=== PATIENT | female | born 1950 | race Caucasian/White ===

== ENCOUNTER 2018-04-19 16:41 | Inpatient (IN) ==
--- NOTE | 2018-04-19 17:10 | Emergency Department Note ---
Disposition Clinical Impression: Left knee pain Qualifiers: Chronicity: acute Qualified Code(s): M25.562 - Pain in left knee Disposition: Still a Patient Condition: Good Referrals: Derrick Trinidad DO [Primary Care Provider] - Forms: ED Satisfaction Letter Time of Disposition: 18:00 Extremity Problem HPI - General Chief complaint: ED Extremity Problem,Nontraumatic Stated complaint: Knee pain Time Seen by Provider: 04/19/18 17:02 Source: patient Mode of arrival: wheelchair Limitations: no limitations Nursing Notes Reviewed: Yes Vital Signs Reviewed: Yes - History of Present Illness HPI Narrative: Nontoxic-appearing 67-year-old female presents for evaluation of left knee pain and swelling. Symptoms began approximately 5 days ago. She states that approximately 3 days ago, she began to run a subjective fever. She does state that she has been afebrile today however. The fever was also accompanied by some nausea and generalized malaise. She denies any known injury or trauma to the left knee. She does state a history of a left knee scope several years ago. She did visited a local urgent care several days ago where she was placed on oral clindamycin. She states she does believe that this medication has improved her symptoms as she is no longer febrile and she states that the swelling has improved today. She contacted her primary care or binders office regarding her symptoms and was instructed to present to the emergency department for further evaluation out of concern for the possibility of a septic joint. Pt Subjective Complaint: joint swelling (Left knee), joint pain (Left knee) Onset (ago): day(s) (5) Consistency: Worsening Injury Location: left, knee Pain Scale: 3 Quality: aching Radiation: none Improves with: nothing Worsens with: range of motion, weight bearing, walking, palpation Associated symptoms: Reports: fever, other (Nausea, generalized malaise) - Related Data Home Medications Medication Instructions Recorded Confirmed Gabapentin 04/29/17 Simvastatin 04/29/17 Symbicort 80/4.5 04/29/17 04/29/17 Xanax 04/29/17 Zoloft 04/29/17 traZODone 04/29/17 Previous Rx's Medication Instructions Recorded Clindamycin HCl 300 mg PO TID 10 Days #30 capsule 04/17/18 Allergies Allergy/AdvReac Type Severity Reaction Status Date / Time No Known Allergies Allergy Verified 04/17/18 17:07 All systems ED: reviewed and negative except as stated. Review of Systems: As Per HPI Constitutional: Reports: as per HPI, fever. Denies: chills, weakness, weight change Eyes: Denies: eye pain, eye discharge, vision change ENT ED: Denies: ear pain, throat pain, dental pain, hearing loss, epistaxis, congestion, dysphagia Cardiovascular: Denies: chest pain, palpitations, dyspnea on exertion, edema, syncope Respiratory: Denies: cough, dyspnea, wheezes, hemoptysis, stridor Gastrointestinal: Reports: as per HPI, nausea. Denies: abdominal pain, vomiting, diarrhea, constipation, hematemesis, melena, hematochezia Genitourinary: Denies: dysuria, frequency, hematuria, discharge Musculoskeletal: Reports: as per HPI, joint swelling (Left knee swelling), arthralgia (Left knee pain). Denies: back pain, neck pain, myalgia Integumentary: Denies: rash, abrasion, lesions Neurological: Denies: headache, weakness, numbness, paresthesias, confusion, abnormal gait, vertigo Psychiatric: Denies: anxiety, depression, suicidal thoughts, homicidal thoughts, auditory hallucinations, visual hallucinations Endocrine: Denies: fatigue Hematological/Lymphatic: Denies: easy bleeding, easy bruising Allergic/Immunologic: Denies: facial swelling, urticaria Past Medical History - Past Medical History Attestation: Yes The following information was validated with the patient. Source: patient, nursing notes reviewed Medical history: Reports: COPD, other (Osteoarthritis) - Social History Smoking Status: Unknown if ever smoked Smokeless Tobacco Status: No Alcohol use: Reports: none Physical Exam - General Limitations: no limitations General appearance: alert, in no apparent distress - Head Head exam: atraumatic, normocephalic, normal inspection - Eye Eye exam: Present: normal appearance, PERRL, EOMI. Absent: nystagmus - ENT ENT exam: mucous membranes moist - Neck Neck exam: Present: normal inspection, full ROM, trachea midline - Chest Chest inspection: Present: normal inspection, symmetric chest wall rise - Expanded Lower Extremity Exam Upper leg exam: Present: normal inspection, full ROM Knee exam: Present: full ROM (Although painful with range of motion exercises), tenderness (Anterior left knee diffusely tender to palpation. There is also tenderness with palpation of the posterior fossa.), swelling (Mild soft tissue swelling noted, left knee), other (No erythema however the left knee is slightly warm to the touch compared to the right.). Absent: abrasion, laceration, ecchymosis, deformity, crepitus, dislocation, erythema Lower leg exam: Present: normal inspection, full ROM. Absent: erythema, palpable cord, Homans' sign Ankle exam: Present: normal inspection, full ROM Foot/toe exam: Present: normal inspection, full ROM Neurovascular/Tendon exam: Present: normal capillary refill. Absent: pulse deficit, tendon deficit, extremity cold to touch - Neurological Exam Neurological exam: Present: alert, oriented X3 - Psychiatric Psychiatric exam: Present: normal affect, normal mood - Skin Skin exam: Present: warm, dry, intact Course Course Narrative: 1756: I was notified by the optics manufacturing technician that the patient is negative for a DVT or SVT of the left lower extremity. Vital Signs Temperature 98.6 F 04/19/18 16:51 Pulse Rate 88 04/19/18 16:51 Respiratory Rate 18 04/19/18 16:51 Blood Pressure 136/71 04/19/18 16:51 O2 Sat by Pulse Oximetry 94 04/19/18 16:51 Temperature 98.6 F 04/19/18 16:51 Pulse Rate 88 04/19/18 16:51 Respiratory Rate 18 04/19/18 16:51 Blood Pressure 136/71 04/19/18 16:51 O2 Sat by Pulse Oximetry 94 04/19/18 16:51 Oxygen Delivery Oxygen Delivery Room Air Extremity Problem, Nontraumati - Medical Records Medical records reviewed: Yes I reviewed the patient's medical records. S.B.A.R. - S.B.A.R. Situation: Demographics, MOA Background: Presenting Complaint, Relevant PMH, Meds, & Allergies Assessment: Vital Signs, Course and respsone to treatment, Exam Concerns, Patient/Family Expectation, Pertinant Lab Results, Outstanding Labs Recommendation: Barrier(s) to disposition, Recommendation based on pending studies, treatments, or consults S.B.A.R. Report Given to: Bola Miranda CNP S.B.AEva Repor Time: 18:00
[2018-04-19 18:12] LABS: BUN/Creatinine Ratio 17 (6-26); Blood Urea Nitrogen 12 mg/dL (8-23); C-Reactive Protein 51 mg/L (Less than 10); Calcium 9.6 mg/dL (8.6-10.3); Carbon Dioxide 34 mEq/L (23-29); Chloride 101 mEq/L (98-107); Glucose 121 mg/dL (70-105); Osmolality,Calculated 291 (280-300); Potassium 4.7 mEq/L (3.5-5.1); Sodium 140 mEq/L (136-145); Uric Acid 2.8 mg/dL (2.3-7.6); eGFR For Non-African Americans > 60 (> 60)
--- NOTE | 2018-04-19 18:22 | Emergency Department Note ---
Disposition Clinical Impression: Hemarthrosis Left knee pain Qualifiers: Chronicity: acute Qualified Code(s): M25.562 - Pain in left knee Disposition: Admitted As Inpatient Condition: Good Extremity Problem HPI - General Chief complaint: ED Extremity Problem,Nontraumatic Stated complaint: Knee pain Time Seen by Provider: 04/19/18 17:02 Source: patient Mode of arrival: wheelchair Limitations: no limitations Nursing Notes Reviewed: Yes Vital Signs Reviewed: Yes - History of Present Illness Consistency: Worsening Injury Location: left, knee Pain Scale: 3 Quality: aching Improves with: nothing Worsens with: range of motion, weight bearing, walking, palpation Associated symptoms: Reports: fever, other (Nausea, generalized malaise) - Related Data Home Medications Medication Instructions Recorded Confirmed ALPRAZolam [Xanax 0.5 MG Tablet] 0.5 mg PO HS 04/19/18 04/19/18 Budesonide/Formoterol 160/4.5 2 puff IH BIDR 04/19/18 04/19/18 [Symbicort 160/4.5] Meloxicam 15 mg PO DAILY 04/19/18 04/19/18 Sertraline [Zoloft] 150 mg PO DAILY 04/19/18 04/19/18 Simvastatin [Zocor] 40 mg PO QPM 04/19/18 04/19/18 Trazodone HCl 150 mg PO HS 04/19/18 04/19/18 Allergies Allergy/AdvReac Type Severity Reaction Status Date / Time No Known Allergies Allergy Verified 04/17/18 17:07 Constitutional: Reports: as per HPI, fever. Denies: chills, weakness, weight change Eyes: Denies: eye pain, eye discharge, vision change ENT ED: Denies: ear pain, throat pain, dental pain, hearing loss, epistaxis, congestion, dysphagia Cardiovascular: Denies: chest pain, palpitations, dyspnea on exertion, edema, syncope Respiratory: Denies: cough, dyspnea, wheezes, hemoptysis, stridor Gastrointestinal: Reports: as per HPI, nausea. Denies: abdominal pain, vomiting, diarrhea, constipation, hematemesis, melena, hematochezia Genitourinary: Denies: dysuria, frequency, hematuria, discharge Musculoskeletal: Reports: as per HPI, joint swelling (Left knee swelling), arthralgia (Left knee pain). Denies: back pain, neck pain, myalgia Integumentary: Denies: rash, abrasion, lesions Neurological: Denies: headache, weakness, numbness, paresthesias, confusion, abnormal gait, vertigo Psychiatric: Denies: anxiety, depression, suicidal thoughts, homicidal thoughts, auditory hallucinations, visual hallucinations Endocrine: Denies: fatigue Hematological/Lymphatic: Denies: easy bleeding, easy bruising Allergic/Immunologic: Denies: facial swelling, urticaria Past Medical History - Past Medical History Medical history: Reports: COPD, other (Osteoarthritis) - Social History Smoking Status: Unknown if ever smoked Smokeless Tobacco Status: No Alcohol use: Reports: none Physical Exam - General Limitations: no limitations General appearance: alert, in no apparent distress Course Course Narrative: Care of patient assumed from previous provider, please see their documentation for interventions and assessment prior to my arrival. Briefly, this is a 67-year-old female who presents to the ER for left pain knee and swelling for 5 days. Says a nontraumatic pain. 3 days ago patient was experiencing subjective fevers though she states she has been afebrile today. The fevers were accompanied with some nausea and general malaise. She did not seek urgent care who placed her on oral clindamycin and she has noticed some improvement with some decreased swelling and the subjective fevers have stopped. Gen. but her PCP office who had her come to the emergency department for evaluation for possibility of a septic joint. Prior to my arrival patient had a Doppler study which was negative for a DVT. She is currently pending lab work and an x-ray. Patient has declined all pain medication. She is ambulatory, she does have full range of motion that she does have pain with the range of motion exercises. Left knee with some mild edema, there is slight warmth with touch, no erythema. Patient is ambulatory she does favor her left knee, there is tenderness to palpation to the anterior knee diffusely, pain with PROM. No skin dyscrasia, noticeable abscess or ulceration. - Reevaluation(s) Reevaluation #1: Pt continues to decline pain medication. ESR/CRP, BMP, LA returned however no CBC. Phoned lab, did not run CBC, will have to redraw sample due to already running ESR. ESR returns 29, CRP 51, Lactic Acid 1.5. BMP is benign. It is poss ible the elevation of ESR/CRP related to acute arthritis and not necessarily septic arthritis. Knee XR with tricompartmental arthritis and possible joint effusion. Pt states Clindamycin was for a ear infection, but she has not been able to take it. Ears without evidence of infection. Will continue to monitor, lab has been repaged for CBC. Time: 19:35 Reevaluation #2: CBC returns without leukocytosis. After anesthetizing left knee with 1 mL of lidocaine, area was sterilely prepped and utilizing sterile procedure and arthrocentesis was completed in the medial infrapatellar area with success. Synovial fluid returns a dk purple in color, obvious blood, what appeared to be thick cloudy fluid mixed with blood. Pt tolerated procedure well without complications or bleeding. Specimen sent to lab for analysis. Time: 20:42 Reevaluation #3: Pt continues without acute distress, she complains of mild pain still but declines treatment. Synovial fluid returns with total nuc cells at 5519, bloody. MADHAVI source continues to pend. Pt without classic presentation of septic joint, but does have concerning symptoms with pain with passive ROM, fevers. I cannot say for certain this is or is not septic arthritis but it does continue to be in the differential diagnosis along with OA exacerbation, hematoma, benign hemoarthrosis. It is a weekend, no follow up until Sunday available. Plan orthopedic consult. Case discussed with Dr. Fink who is agreeable to plan of care and has 1:1 facetime with patient. I did speak with Dr. Monique regarding patient. Pt with pain with passive ROM, history of fevers with max temp 102 on (though states none today), edema to knee, atraumatic. Pt without erythema, warmth to joint. Case presented to Dr. Monique who personally reviewed XR. Questioning hematoma vs septic arthritis. Ortho recommendation to admit if concerned with IV ATB and they will see her in AM. Given elevation of ESR/CRP, passive ROM with pain, hemoarthrosis, history of fevers and weekend status I feel for pt we should admit until morning. If truly a septic joint pt would not have follow up until Sunday (3 days). Pt is agreeable to plan of care. We will initiate antibiotics, page hospitalist for admission. [id number]--accepting by Hospitalist Time: 22:00 Vital Signs Temperature 98.6 F 04/19/18 16:51 Pulse Rate 88 04/19/18 16:51 Respiratory Rate 18 04/19/18 16:51 Blood Pressure 136/71 04/19/18 16:51 O2 Sat by Pulse Oximetry 94 04/19/18 16:51 Temperature 98.3 F 04/20/18 00:56 Pulse Rate 68 04/20/18 00:56 Respiratory Rate 16 04/20/18 00:56 Blood Pressure 170/94 04/20/18 00:56 O2 Sat by Pulse Oximetry 93 04/20/18 00:56 Oxygen Delivery Oxygen Delivery Room Air Procedures - Joint Aspiration/Injection Joint Aspiration/Injection 1 Consent Obtained: verbal consent Time Out Performed: Yes Side of body: left Joint Aspirated: knee Ultrasound Guidance: No Skin Prep: Povidone-Iodine1% Local Anesthetic: lidocaine 1% Needle Size Used: 22G Fluid Obtained: bloody Total Fluid Obtained (mls): 4 Patient Tolerated Procedure: well Complications: none Extremity Problem, Nontraumati - Differential Diagnosis Likely: septic joint, other. Unlikely: herpes zoster, gout, cellulitis, superficial thrombophlebitis, deep venous thrombosis, compartment syndrome, arterial vascular disorder - Lab Data Lab results reviewed: Yes I reviewed the patient's lab results. Result diagrams: 04/19/18 19:06 04/19/18 17:39 Lab Results 04/19/18 04/19/18 04/19/18 Range/Units 17:39 17:39 17:39 WBC (4.3-11.1) K/mcL RBC (3.82-4.97) M/mcL Hgb (11.5-15.4) g/dL Hct (35.3-44.9) % MCV (83.0-100.0) fL MCH (28.0-33.3) pg MCHC (31.6-35.5) g/dL RDW (11.5-14.5) % Plt Count (140-400) K/mcL MPV (9.4-12.4) fL Immature Gran % (0-4) % Seg Neutrophils % % Lymphocytes % % Monocytes % % Eosinophils % % Basophils % % Neutrophils # (1.6-8.9) K/mcL Lymphocytes # (0.6-4.6) K/mcL Monocytes # (0.0-1.3) K/mcL Eosinophils # (0.0-0.6) K/mcL Basophils # (0.0-0.2) K/mcL ESR 29 H (0-15) mm/hr Sodium 140 (136-145) mEq/L Potassium 4.7 (3.5-5.1) mEq/L Chloride 101 (98-107) mEq/L Carbon Dioxide 34 H (23-29) mEq/L BUN 12 (8-23) mg/dL Creatinine 0.69 (0.60-1.20) mg/dL Est GFR ( Amer) > 60 (> 60) Est GFR (Non-Af Amer) > 60 (> 60) BUN/Creatinine Ratio 17 (6-26) Glucose 121 H (70-105) mg/dL Calculated Osmolality 291 (280-300) Lactic Acid 1.5 (0.5-2.2) mmol/L Uric Acid 2.8 (2.3-7.6) mg/dL Calcium 9.6 (8.6-10.3) mg/dL C-Reactive Protein 51 H (Less than 10) mg/L Synovial Source Synovial Color (Straw) Synovial Appearance (Clear-Hazy) Synovial Volume mL Synovial RBC (0.000 - 0.002) M/mcl Synovial Tot Nuc Cell (0-200) TNC/mcL Synovial Band Neuts Synovial Basophils Synovial Eosinophils Synovial Seg Neuts % % Synovial Lymphocytes % % Synovial Monocytes % % Synovial Other Cells % % Synovial Crystals (None Seen) 04/19/18 04/19/18 Range/Units 19:06 20:29 WBC 9.3 (4.3-11.1) K/mcL RBC 4.44 (3.82-4.97) M/mcL Hgb 13.6 (11.5-15.4) g/dL Hct 41.4 (35.3-44.9) % MCV 93.2 (83.0-100.0) fL MCH 30.6 (28.0-33.3) pg MCHC 32.9 (31.6-35.5) g/dL RDW 13.0 (11.5-14.5) % Plt Count 260 (140-400) K/mcL MPV 9.2 L (9.4-12.4) fL Immature Gran % 0.3 (0-4) % Seg Neutrophils % 73.2 % Lymphocytes % 17.9 % Monocytes % 7.3 % Eosinophils % 1.1 % Basophils % 0.2 % Neutrophils # 6.8 (1.6-8.9) K/mcL Lymphocytes # 1.7 (0.6-4.6) K/mcL Monocytes # 0.7 (0.0-1.3) K/mcL Eosinophils # 0.1 (0.0-0.6) K/mcL Basophils # 0.0 (0.0-0.2) K/mcL ESR (0-15) mm/hr Sodium (136-145) mEq/L Potassium (3.5-5.1) mEq/L Chloride (98-107) mEq/L Carbon Dioxide (23-29) mEq/L BUN (8-23) mg/dL Creatinine (0.60-1.20) mg/dL Est GFR ( Amer) (> 60) Est GFR (Non-Af Amer) (> 60) BUN/Creatinine Ratio (6-26) Glucose (70-105) mg/dL Calculated Osmolality (280-300) Lactic Acid (0.5-2.2) mmol/L Uric Acid (2.3-7.6) mg/dL Calcium (8.6-10.3) mg/dL C-Reactive Protein (Less than 10) mg/L Synovial Source left knee Synovial Color Red (Straw) Synovial Appearance Bloody A (Clear-Hazy) Synovial Volume 5.0 mL Synovial RBC 1.927 H (0.000 - 0.002) M/mcl Synovial Tot Nuc Cell 5519 H (0-200) TNC/mcL Synovial Band Neuts Test Not Performed Synovial Basophils Test Not Performed Synovial Eosinophils Test Not Performed Synovial Seg Neuts % 76.0 % Synovial Lymphocytes % 19.0 % Synovial Monocytes % 1.0 % Synovial Other Cells % 4.0 % Synovial Crystals No Crystals Seen (None Seen) - Radiology Data Radiology results reviewed: Yes I reviewed the patient's radiology results. Knee X-Ray 04/19/18 17:16 IMPRESSION: Mild tricompartment osteoarthritis left knee. Intra-articular osseous body. Possible joint effusion. Otherwise unremarkable radiographs left knee. D/ / Mustapha Al / Mustapha Al Interpreting Provider: Mustapha Al
[2018-04-19 19:37] LABS: Basophils % 0.2 %; Eosinophils # 0.1 K/mcL (0.0-0.6); Eosinophils % 1.1 %; Hematocrit 41.4 % (35.3-44.9); Hemoglobin 13.6 g/dL (11.5-15.4); Immature Granulocytes % 0.3 % (0-4); Lymphocytes # 1.7 K/mcL (0.6-4.6); Lymphocytes % 17.9 %; Mean Corpuscular HGB Conc 32.9 g/dL (31.6-35.5); Mean Corpuscular Hemoglobin 30.6 pg (28.0-33.3); Mean Corpuscular Volume 93.2 fL (83.0-100.0); Mean Platelet Volume 9.2 fL (9.4-12.4); Monocytes # 0.7 K/mcL (0.0-1.3); Monocytes % 7.3 %; Neutrophils # 6.8 K/mcL (1.6-8.9); Platelet Count 260 K/mcL (140-400); Red Blood Count 4.44 M/mcL (3.82-4.97); Segmented Neutrophils % 73.2 %
[2018-04-19] MEDS ORDERED: Lidocaine -MPF 1% 2 ML VIAL INFILT ONE (20:03)
[2018-04-19 20:52] LABS: Source,Synovial Fluid left knee
[2018-04-19 21:11] LABS: Appearance,Synovial Fluid Bloody (Clear-Hazy); Color,Synovial Fluid Red (Straw)
--- NOTE | 2018-04-19 22:00 | Emergency Department Note ---
Disposition Clinical Impression: Hemarthrosis Left knee pain Qualifiers: Chronicity: acute Qualified Code(s): M25.562 - Pain in left knee Disposition: Admitted As Inpatient Condition: Good Referrals: Derrick Trinidad DO [Primary Care Provider] - Forms: ED Satisfaction Letter General Adult HPI - General Chief complaint: ED Extremity Problem,Nontraumatic Stated complaint: Knee pain Time Seen by Provider: 04/19/18 17:02 Source: patient Mode of arrival: wheelchair Limitations: no limitations Nursing Notes Reviewed: Yes Vital Signs Reviewed: Yes - History of Present Illness Pain Scale: 3 - Related Data Home Medications Medication Instructions Recorded Confirmed ALPRAZolam [Xanax 0.5 MG Tablet] 0.5 mg PO HS 04/19/18 04/19/18 Budesonide/Formoterol 160/4.5 2 puff IH BIDR 04/19/18 04/19/18 [Symbicort 160/4.5] Meloxicam 15 mg PO DAILY 04/19/18 04/19/18 Sertraline [Zoloft] 150 mg PO DAILY 04/19/18 04/19/18 Simvastatin [Zocor] 40 mg PO QPM 04/19/18 04/19/18 Trazodone HCl 150 mg PO HS 04/19/18 04/19/18 Allergies Allergy/AdvReac Type Severity Reaction Status Date / Time No Known Allergies Allergy Verified 04/17/18 17:07 Constitutional: Reports: as per HPI, fever. Denies: chills, weakness, weight change Eyes: Denies: eye pain, eye discharge, vision change ENT ED: Denies: ear pain, throat pain, dental pain, hearing loss, epistaxis, congestion, dysphagia Cardiovascular: Denies: chest pain, palpitations, dyspnea on exertion, edema, syncope Respiratory: Denies: cough, dyspnea, wheezes, hemoptysis, stridor Gastrointestinal: Reports: as per HPI, nausea. Denies: abdominal pain, vomiting, diarrhea, constipation, hematemesis, melena, hematochezia Genitourinary: Denies: dysuria, frequency, hematuria, discharge Musculoskeletal: Reports: as per HPI, joint swelling (Left knee swelling), a rthralgia (Left knee pain). Denies: back pain, neck pain, myalgia Integumentary: Denies: rash, abrasion, lesions Neurological: Denies: headache, weakness, numbness, paresthesias, confusion, abnormal gait, vertigo Psychiatric: Denies: anxiety, depression, suicidal thoughts, homicidal thoughts, auditory hallucinations, visual hallucinations Endocrine: Denies: fatigue Hematological/Lymphatic: Denies: easy bleeding, easy bruising Allergic/Immunologic: Denies: facial swelling, urticaria Past Medical History - Past Medical History Medical history: Reports: COPD, other (Osteoarthritis) - Social History Smoking Status: Unknown if ever smoked Smokeless Tobacco Status: No Alcohol use: Reports: none Physical Exam - General Limitations: no limitations General appearance: alert, in no apparent distress Course Vital Signs Temperature 98.6 F 04/19/18 16:51 Pulse Rate 88 04/19/18 16:51 Respiratory Rate 18 04/19/18 16:51 Blood Pressure 136/71 04/19/18 16:51 O2 Sat by Pulse Oximetry 94 04/19/18 16:51 Temperature 98.6 F 04/19/18 16:51 Pulse Rate 88 04/19/18 16:51 Respiratory Rate 18 04/19/18 16:51 Blood Pressure 136/71 04/19/18 16:51 O2 Sat by Pulse Oximetry 94 04/19/18 16:51 Oxygen Delivery Oxygen Delivery Room Air Medical Decision Making - Lab Data Lab results reviewed: Yes I reviewed the patient's lab results. Result diagrams: 04/19/18 19:06 04/19/18 17:39 Lab Results 04/19/18 04/19/18 04/19/18 Range/Units 17:39 17:39 17:39 WBC (4.3-11.1) K/mcL RBC (3.82-4.97) M/mcL Hgb (11.5-15.4) g/dL Hct (35.3-44.9) % MCV (83.0-100.0) fL MCH (28.0-33.3) pg MCHC (31.6-35.5) g/dL RDW (11.5-14.5) % Plt Count (140-400) K/mcL MPV (9.4-12.4) fL Immature Gran % (0-4) % Seg Neutrophils % % Lymphocytes % % Monocytes % % Eosinophils % % Basophils % % Neutrophils # (1.6-8.9) K/mcL Lymphocytes # (0.6-4.6) K/mcL Monocytes # (0.0-1.3) K/mcL Eosinophils # (0.0-0.6) K/mcL Basophils # (0.0-0.2) K/mcL ESR 29 H (0-15) mm/hr Sodium 140 (136-145) mEq/L Potassium 4.7 (3.5-5.1) mEq/L Chloride 101 (98-107) mEq/L Carbon Dioxide 34 H (23-29) mEq/L BUN 12 (8-23) mg/dL Creatinine 0.69 (0.60-1.20) mg/dL Est GFR ( Amer) > 60 (> 60) Est GFR (Non-Af Amer) > 60 (> 60) BUN/Creatinine Ratio 17 (6-26) Glucose 121 H (70-105) mg/dL Calculated Osmolality 291 (280-300) Lactic Acid 1.5 (0.5-2.2) mmol/L Uric Acid 2.8 (2.3-7.6) mg/dL Calcium 9.6 (8.6-10.3) mg/dL C-Reactive Protein 51 H (Less than 10) mg/L Synovial Source Synovial Color (Straw) Synovial Appearance (Clear-Hazy) Synovial Volume mL Synovial RBC (0.000 - 0.002) M/mcl Synovial Tot Nuc Cell (0-200) TNC/mcL Synovial Band Neuts Synovial Basophils Synovial Eosinophils Synovial Seg Neuts % % Synovial Lymphocytes % % Synovial Monocytes % % Synovial Other Cells % % Synovial Crystals (None Seen) 04/19/18 04/19/18 Range/Units 19:06 20:29 WBC 9.3 (4.3-11.1) K/mcL RBC 4.44 (3.82-4.97) M/mcL Hgb 13.6 (11.5-15.4) g/dL Hct 41.4 (35.3-44.9) % MCV 93.2 (83.0-100.0) fL MCH 30.6 (28.0-33.3) pg MCHC 32.9 (31.6-35.5) g/dL RDW 13.0 (11.5-14.5) % Plt Count 260 (140-400) K/mcL MPV 9.2 L (9.4-12.4) fL Immature Gran % 0.3 (0-4) % Seg Neutrophils % 73.2 % Lymphocytes % 17.9 % Monocytes % 7.3 % Eosinophils % 1.1 % Basophils % 0.2 % Neutrophils # 6.8 (1.6-8.9) K/mcL Lymphocytes # 1.7 (0.6-4.6) K/mcL Monocytes # 0.7 (0.0-1.3) K/mcL Eosinophils # 0.1 (0.0-0.6) K/mcL Basophils # 0.0 (0.0-0.2) K/mcL ESR (0-15) mm/hr Sodium (136-145) mEq/L Potassium (3.5-5.1) mEq/L Chloride (98-107) mEq/L Carbon Dioxide (23-29) mEq/L BUN (8-23) mg/dL Creatinine (0.60-1.20) mg/dL Est GFR ( Amer) (> 60) Est GFR (Non-Af Amer) (> 60) BUN/Creatinine Ratio (6-26) Glucose (70-105) mg/dL Calculated Osmolality (280-300) Lactic Acid (0.5-2.2) mmol/L Uric Acid (2.3-7.6) mg/dL Calcium (8.6-10.3) mg/dL C-Reactive Protein (Less than 10) mg/L Synovial Source left knee Synovial Color Red (Straw) Synovial Appearance Bloody A (Clear-Hazy) Synovial Volume 5.0 mL Synovial RBC 1.927 H (0.000 - 0.002) M/mcl Synovial Tot Nuc Cell 5519 H (0-200) TNC/mcL Synovial Band Neuts Test Not Performed Synovial Basophils Test Not Performed Synovial Eosinophils Test Not Performed Synovial Seg Neuts % 76.0 % Synovial Lymphocytes % 19.0 % Synovial Monocytes % 1.0 % Synovial Other Cells % 4.0 % Synovial Crystals No Crystals Seen (None Seen) - Radiology Data Radiology results reviewed: Yes I reviewed the patient's radiology results. Knee X-Ray 04/19/18 17:16 IMPRESSION: Mild tricompartment osteoarthritis left knee. Intra-articular osseous body. Possible joint effusion. Otherwise unremarkable radiographs left knee. D/ / Mustapha Al / Mustapha Al Interpreting Provider: Mustapha Al Critical Care Time Critical Care Time: No Attestation Statement - Attestation Attestation: I, Harjeet Fink MD, personally evaluated this patient and discussed their management with the midlevel provicer, PAC/PHYSICAL OPTICS TEACHER. I reviewed the midlevel provider's note and agree with the documented findings, medical decision making, and plan of care. 67-year-old female presents with atraumatic left knee pain which started about one week prior to arrival and has gotten progressively worse. Patient complains of difficulty ambulating due to the pain in the knee. Pain especially in the popliteal space. She states it has been popping and cracking a lot recently. She also feels like it has been swollen. She has been running fevers for several days this week. She was referred here by her primary care provider for evaluation of the knee for possible septic knee. She has had surgery on this knee in the very distant past. On examination patient is a well-developed well-nourished well-appearing female in no acute distress. She is alert and oriented 3. There is no cyanosis or diaphoresis. The left knee is tender and mildly swollen. There is a mild joint effusion on palpation. It is not red or hot to touch. She does have full range of motion with full extension. Neurovascular function intact distally. Labs reviewed. The joint was aspirated by the nurse practitioner which revealed bloody fluid which appeared to her to be purulent. The cell count shows greater than 5000 wbc's. She also has elevated ESR and CRP. Patient was discussed with the orthopedist longitudinal float operator, Dr. Monique. The hospi talist, Dr. Hart, was consulted and accepted admission of the patient. Dr. Monique will see the patient in the hospital in the morning. IV antibiotics initiated.
[2018-04-19] MEDS ORDERED: ALPRAZolam 0.5 MG TABLET PO ONE (22:02)
[2018-04-19] MEDS ORDERED: traZODone 50 MG TABLET PO ONE (22:02)
[2018-04-19] MEDS ORDERED: Ketorolac 15 MG/ML VIAL IVP ONE (22:02)
[2018-04-19] MEDS ORDERED: Piperacillin/Tazobactam 3.375 GM in 0.9 % Sodium Chloride Mini Bag 100 ML IVPB ONE (22:03)
--- NOTE | 2018-04-20 00:45 | Internal Med History&Physical ---
<Gustavo Rosas T - Last Filed: 04/19/18 23:50> Date of Encounter: 04/20/18 Time of Encounter: 23:51 Internal Medicine - H&P: HPI Admitted From: Home History of present illness: Ms. Siegel is a 67 year old female sending with left knee pain and swelling. She states the symptoms started about 5 days ago and have been getting progressively worse. She states that she also has been feeling sick since Sunday with fevers, chills, and night sweats. She went to urgent care and they gave her clindamycin which stopped the fevers and decreased her swelling. On Sunday04/19/18 she presented to [facility] where they transferred her to [place] for care. At [facility] the did a Doppler study which was negative for DVT. I presentation patient says that she has pain with movement of her left knee. She states that the knee is warm and tender to palpation anteriorly and posteriorly with full range of motion. Patient denies recent knee injury however states that she has noticed her knee has been clicking for the past couple weeks. She was started on vancomycin but has been stopped. She is afebrile, has normal white blood cell count, X-ray of left knee showed mild tricompartment osteoarthritis of left knee, intra-articular osseous body, and possible joint effusion. Synovial fluid was tapped and showed elevated nucleated cells of 5519 (N <200) and red blood cells of 1.927 (N<0.002). Dr. Rose was calm consulted and he agreed to see patient tomorrow a.m. and he requested repeat synovial fluid tap and morning. Patient has history of hyperlipidemia, fibromyalgia, arthritis, arthroscopic surgery left knee over 20 years ago, COPD (2nd hand smoke from ). Nonsmoker, no alcohol use. Past Med Surg Social Fam HX - Past Medical History Medical history: COPD, other (Osteoarthritis) - Social History Smoking Status: Unknown if ever smoked Smokeless Tobacco Status: No Alcohol use: none Internal Medicine - H&P: Meds ALPRAZolam [Xanax 0.5 MG Tablet] 0.5 mg PO HS 04/19/18 [History] Budesonide/Formoterol 160/4.5 [Symbicort 160/4.5] 2 puff IH BIDR 04/19/18 [History] Meloxicam 15 mg PO DAILY 04/19/18 [History] Sertraline [Zoloft] 150 mg PO DAILY 04/19/18 [History] Simvastatin [Zocor] 40 mg PO QPM 04/19/18 [History] Trazodone HCl 150 mg PO HS 04/19/18 [History] Allergy/AdvReac Type Severity Reaction Status Date / Time No Known Allergies Allergy Verified 04/17/18 17:07 All Systems PM: A 10-system review of systems was performed and is negative for pertinent findings except as documented above in the HPI. - Constitutional Constitutional: chills, fever(s), malaise, night sweats - Cardiovascular Cardiovascular ROS IM: no chest pain, no palpitations - Respiratory Respiratory: no cough, no dyspnea - Gastrointestinal Gastrointestinal: no abdominal pain, no change in bowel habits - Genitourinary Genitourinary: no dysuria, no urinary frequency, no urinary hesitancy, no urinary incontinence - Musculoskeletal Musculoskeletal ROS IM: joint swelling (Left knee joint), no arthralgias - Neurological Neurological ROS: no weakness - Constitutional Vitals: Temp Pulse Resp BP Pulse Ox 98.6 F 88 16 124/59 94 04/19/18 16:51 04/19/18 16:51 04/19/18 23:12 04/19/18 23:12 04/19/18 16:51 General appearance: Present: cooperative, A&O X 3, pleasant, no acute distress, answers questions appropriately Exam: . - Head Head exam: Present: atraumatic, normal inspection - Eye Eye exam: Present: EOMI, normal appearance - Neck Neck exam general surgery: Present: supple, trachea midline - Respiratory Respiratory exam: Present: CTAB - Cardiovascular Cardiovascular exam: Present: RRR, +S1, +S2 - GI/Abdominal GI/Abdominal exam: Present: normal bowel sounds. Absent: tenderness - Extremities Exam Extremities exam: Present: full ROM, radial pulses palpable and symmetrical. Absent: calf tenderness - Expanded Lower Extremities Exam Knee exam: Present: erythema, full ROM, swelling (Market swelling compared to the right knee.), tenderness (Tenderness to palpation anteriorly and posteriorly.) - Neurological Exam Neurological exam: Present: alert. Absent: no focal deficits - Psychiatric Psychiatric exam: Present: normal affect - Skin Skin exam: Present: dry, intact, warm Internal Med - H&P Results - Labs CBC & Chem 7: 04/19/18 19:06 04/19/18 17:39 Labs: Short CBC 04/19/18 Range/Units 19:06 WBC 9.3 (4.3-11.1) K/mcL Hgb 13.6 (11.5-15.4) g/dL Hct 41.4 (35.3-44.9) % Plt Count 260 (140-400) K/mcL Neutrophils # 6.8 (1.6-8.9) K/mcL BMP 04/19/18 17:39 Sodium 140 Potassium 4.7 Chloride 101 Carbon Dioxide 34 H BUN 12 Creatinine 0.69 Glucose 121 H Calcium 9.6 - Impressions ITS Impressions Knee X-Ray 04/19/18 17:16 IMPRESSION: Mild tricompartment osteoarthritis left knee. Intra-articular osseous body. Possible joint effusion. Otherwise unremarkable radiographs left knee. D/ / Mustapha Al / Mustapha Al Interpreting Provider: Mustapha Al - Assessment and plan (1) Hemarthrosis Current Visit: Yes Status: Acute Assessment and plan: 67-year-old female presenting with knee pain, x-ray left knee showing effusion, joint aspiration of left knee showing kong-arthrosis. Dr. Rose was contacted and he agreed to see her tomorrow morning, but asked us to repeat the joint aspiration. - For pain: Patient currently reports pain 1 out of 10. Currently controlled on Toradol - Repeat joint aspiration in a.m. (2) DVT prophylaxis Current Visit: No Status: Acute Assessment and plan: Subcutaneous heparin. (3) COPD (chronic obstructive pulmonary disease) Current Visit: Yes Status: Acute Assessment and plan: Continue symbicort. Qualifiers: Qualified Code(s): J44.9 - Chronic obstructive pulmonary disease, unspecified (4) Fibromyalgia Current Visit: Yes Status: Acute Assessment and plan: Continue zoloft - Time Spent With Patient Total time spent is greater than 50% in coordination of care (as documented) at patient's floor/unit and/or counseling patient: <CriseldamataCesar wood A - Last Filed: 04/20/18 07:50> Date of Encounter: 04/19/18 Internal Medicine - H&P: HPI History of present illness: Ms. Siegel is a 67 year old female Past Med Surg Social Fam HX - Family History Mother Living Status: Hx Family Cardiac Disorders: Yes (Heart disease, [place]) All Systems PM: A 10-system review of systems was performed and is negative for pertinent findings except as documented above in the HPI. - Constitutional Vitals: Temp Pulse Resp BP Pulse Ox 97.2 F L 73 16 118/76 93 04/20/18 06:35 04/20/18 06:35 04/20/18 06:35 04/20/18 06:35 04/20/18 06:35 Internal Med - H&P Results - Labs CBC & Chem 7: 04/19/18 19:06 04/19/18 17:39 Labs: Short CBC 04/19/18 Range/Units 19:06 WBC 9.3 (4.3-11.1) K/mcL Hgb 13.6 (11.5-15.4) g/dL Hct 41.4 (35.3-44.9) % Plt Count 260 (140-400) K/mcL Neutrophils # 6.8 (1.6-8.9) K/mcL BMP 04/19/18 17:39 Sodium 140 Potassium 4.7 Chloride 101 Carbon Dioxide 34 H BUN 12 Creatinine 0.69 Glucose 121 H Calcium 9.6 - Impressions ITS Impressions Knee X-Ray 04/19/18 17:16 IMPRESSION: Mild tricompartment osteoarthritis left knee. Intra-articular osseous body. Possible joint effusion. Otherwise unremarkable radiographs left knee. D/ / Mustapha Al / Mustapha Al Interpreting Provider: Mustapha Al - Assessment and plan (1) Hemarthrosis Current Visit: Yes Status: Acute (2) DVT prophylaxis Current Visit: No Status: Acute (3) COPD (chronic obstructive pulmonary disease) Current Visit: No Status: Acute Qualifiers: Qualified Code(s): J44.9 - Chronic obstructive pulmonary disease, unspecified (4) Fibromyalgia Current Visit: No Status: Acute - Time Spent With Patient Total time spent is greater than 50% in coordination of care (as documented) at patient's floor/unit and/or counseling patient: - Attending Attestation I performed a history and physical examination of the patient and discussed her management with the patient. I reviewed the resident's note and agree with the documented findings and plan of care. In short patient is a 67-year-old female with a past medical history of left knee arthroscopy who presented to the ED with 5 day history of left knee pain and swelling. Due to concern for septic joint, patient's knee was tapped in the ED revealing a heme arthritic effusion which appeared to be purulent. No white count. ESR and CRP of 29 and 51 respectively. Patient started on IV vancomycin with blood cultures obtained. Case was discussed with Dr. Rose with orthopedics who will follow the patient in the morning.
[2018-04-20] MEDS ORDERED: Naloxone 0.4 MG/ML INJ IVP PRN (00:58)
[2018-04-20 07:56] LABS: Source,Synovial Fluid Left knee
--- NOTE | 2018-04-20 08:13 | Internal Med Progress Note ---
<Kim Barnes - Last Filed: 04/20/18 12:36> Hospitalist Progress Note - Encounter Date of Encounter: 04/20/18 - Exam Vitals: Temp Pulse Resp BP Pulse Ox 98.4 F 82 17 122/80 96 04/20/18 12:19 04/20/18 12:19 04/20/18 12:19 04/20/18 12:19 04/20/18 12:19 - Assessment and Plan (1) Hemarthrosis Current Visit: Yes Status: Acute (2) DVT prophylaxis Current Visit: No Status: Acute (3) COPD (chronic obstructive pulmonary disease) Current Visit: No Status: Acute (4) Fibromyalgia Current Visit: No Status: Acute - Time Spent with Patient Total time spent is greater than 50% in coordination of care (as documented) at patient's floor/unit and/or counseling patient: Internal Medicine: Result - Labs CBC & Chem 7: 04/19/18 19:06 04/19/18 17:39 Labs: Short CBC 04/19/18 Range/Units 19:06 WBC 9.3 (4.3-11.1) K/mcL Hgb 13.6 (11.5-15.4) g/dL Hct 41.4 (35.3-44.9) % Plt Count 260 (140-400) K/mcL Neutrophils # 6.8 (1.6-8.9) K/mcL BMP 04/19/18 17:39 Sodium 140 Potassium 4.7 Chloride 101 Carbon Dioxide 34 H BUN 12 Creatinine 0.69 Glucose 121 H Calcium 9.6 - Impressions Impressions Knee X-Ray 04/19/18 17:16 IMPRESSION: Mild tricompartment osteoarthritis left knee. Intra-articular osseous body. Possible joint effusion. Otherwise unremarkable radiographs left knee. D/ / Mustapha Al / Mustapha Al Interpreting Provider: Mustapha Al Consult Discharge Plan - Plan Referrals: Derrick Trinidad DO [Primary Care Provider] - - Attending Attestation I examined this patient and my medical decision-making was reviewed with the Resident Physician Dr Ratliff. I agree with the documented findings, disposition and treatment plan as described except to the extent set forth below. Ms Siegel is admitted with left knee pain and concern for joint infection awake, resting comfortably, pain tolerable, rom intact but "tight". no fevers, chills, n/v. gen- alert, awake,appears stated age cv- reg rate and rhythm, normal s1,s2, no murmurs appreciated lungs- ctabl, no wheezing, rhonchi or crackles msk- left knee joint edema, no increased warmth, + pain to palpation neuro- AAOx3, bl sensation to lt touch intact and equal Left knee pain- concern for septic knee, initial tap fluid analysis neg for infection, seen by ortho today, rec to dc abx, new fluid studies sent and pending, will monitor off abx, cont nsaids for pain Hemarthrosis- hgb stable further diagnoses and treatments as noted by resident <Will Ratliff - Last Filed: 04/20/18 14:05> Hospitalist Progress Note - Encounter Date of Encounter: 04/20/18 Time of Encounter: 08:13 - Subjective Interval History: Dr Rose saw patient early this AM for left knee aspiration. Low suspicion for septic joint. Antibiotics discontinued and plan to follow outpatient. Patient is doing well this morning, labs and vitals without acute changes. - Exam Vitals: Temp Pulse Resp BP Pulse Ox 97.2 F L 73 16 118/76 93 04/20/18 06:35 04/20/18 06:35 04/20/18 06:35 04/20/18 06:35 04/20/18 06:35 Exam: Alert and Oriented x 3 Normal affect PERRL, Mucous Membranes Moist Heart in regular rate and rhythm Lungs Clear to Auscultation Abdomen sot and non tender with normal bowel sounds present No focal deficits Motor, sensation, pulses intact in all 4 distal extremities Left knee swollen, diffusely tender to palpation, ecchymotic, not warm, not red, not indurated - Assessment and Plan (1) Hemarthrosis Current Visit: Yes Status: Acute Assessment and Plan: 67-year-old female presenting with knee pain, x-ray left knee showing effusion, joint aspiration of left knee showing hemarthrosis. Dr Rose saw this AM and repeated joint aspiration Low suspicion for septic joint, discontinued antibiotics, to follow culture results and patient in clinic Exam relatively benign, not concerning for infection We will hold one more day to observe without antibiotics, look for signs of systemic infection Toradol for pain control (2) COPD (chronic obstructive pulmonary disease) Current Visit: No Status: Chronic Assessment and Plan: Continue home symbicort. (3) Fibromyalgia Current Visit: No Status: Chronic Assessment and Plan: Continue home zoloft (4) DVT prophylaxis Current Visit: No Status: Acute Assessment and Plan: Subcutaneous heparin. - Time Spent with Patient Total time spent is greater than 50% in coordination of care (as documented) at patient's floor/unit and/or counseling patient: Internal Medicine: Result - Labs CBC & Chem 7: 04/19/18 19:06 04/19/18 17:39 Labs: Short CBC 04/19/18 Range/Units 19:06 WBC 9.3 (4.3-11.1) K/mcL Hgb 13.6 (11.5-15.4) g/dL Hct 41.4 (35.3-44.9) % Plt Count 260 (140-400) K/mcL Neutrophils # 6.8 (1.6-8.9) K/mcL BMP 04/19/18 17:39 Sodium 140 Potassium 4.7 Chloride 101 Carbon Dioxide 34 H BUN 12 Creatinine 0.69 Glucose 121 H Calcium 9.6 - Impressions Impressions Knee X-Ray 04/19/18 17:16 IMPRESSION: Mild tricompartment osteoarthritis left knee. Intra-articular osseous body. Possible joint effusion. Otherwise unremarkable radiographs left knee. D/ / Mustapha Al / Mustapha Al Interpreting Provider: Mustapha Al <Kim Barnes - Randall Filed: 04/20/18 12:36> (3) COPD (chronic obstructive pulmonary disease) Qualifiers: Qualified Code(s): J44.9 - Chronic obstructive pulmonary disease, unspecified <Will Ratliff - Last Filed: 04/20/18 14:05> (2) COPD (chronic obstructive pulmonary disease) Qualifiers: COPD type: unspecified COPD Qualified Code(s): J44.9 - Chronic obstructive pulmonary disease, unspecified
--- NOTE | 2018-04-20 08:44 | Orthopedic Consult Note ---
Date of Encounter: 04/20/18 Time of Encounter: 08:42 Assessment and Plan (1) Left knee pain Current Visit: Yes Status: Acute I did discuss the diagnosis in detail with the patient. She does have left knee pain in the face of tricompartmental osteoarthritis. The aspirate yesterday had about 5000 synovial white cells and the Gram stain was negative. The nurse practitioner had concern about the appearance of the fluid and therefore my recommendation was for re-aspiration by myself this morning. After informed consent and a timeout identify the correct patient, correct procedure, the correct side, under sterile technique I did place an 18-gauge needle in the superolateral aspect of the left knee, and in atraumatic fashion, I aspirated 22 mL of gross blood which was very dark red. There was no purulence. I did ask the patient if this with the color of the fluid aspirated yesterday and she indicated that it was. The fluid was sent to the lab for Gram stain, culture, cell count, and crystal analysis. My suspicion for septic arthritis is very low. I do recommend following up the cultures, however. Hold antibiotics for now. I would recommend anti-inflammatories for the knee pain. I will follow with you clinically. Qualifiers: Chronicity: acute Qualified Code(s): M25.562 - Pain in left knee History of Present Illness HPI: Ms. Siegel is a 67 year old female who is currently admitted to the hospitalist for left knee pain. She has known history of tricompartmental osteoarthritis. She has had an arthroscopy in the past remotely as well as a prior steroid injection. For about a week she has had worsening left knee pain. She had initially gone to an urgent care where she was diagnosed with an ear infection and placed on clindamycin. She did start having feelings of illness after beginning the clindamycin. She reported back to the emergency department where the nurse practitioner aspirated 5 mL her left knee. The patient indicates to me that it took multiple attempts. The nurse practitioner was concerned about the color of the fluid and she was subsequently admitted to the hospitalist for further evaluation. On my evaluation the patient complains of mild pain to the left knee, worse with motion and better with rest. She denies any numbness, tingling, or any other associated signs or symptoms or modifying f actor. She indicates that she has been walking with a walker recently due to the pain. Past Med Surg Social Fam HX - Past Medical History Medical history: COPD, other (Osteoarthritis) Psychiatric history: anxiety - Social History Smoking Status: Unknown if ever smoked Smokeless Tobacco Status: No Alcohol use: none Drug use: none - Family History Mother Living Status: Hx Family Cardiac Disorders: Yes (Heart disease, [place]) Medications and Allergies ALPRAZolam [Xanax 0.5 MG Tablet] 0.5 mg PO HS 04/19/18 [History] Budesonide/Formoterol 160/4.5 [Symbicort 160/4.5] 2 puff IH BIDR 04/19/18 [History] Meloxicam 15 mg PO DAILY 04/19/18 [History] Sertraline [Zoloft] 150 mg PO DAILY 04/19/18 [History] Simvastatin [Zocor] 40 mg PO QPM 04/19/18 [History] Trazodone HCl 150 mg PO HS 04/19/18 [History] Allergy/AdvReac Type Severity Reaction Status Date / Time No Known Allergies Allergy Verified 04/17/18 17:07 All Systems Reviewed: Constitutional -The patient denies any fevers, chills, or feelings of illness Neurologic -The patient denies any numbness, tingling, or burning pains Physical Exam - Constitutional Vitals: Temp Pulse Resp BP Pulse Ox 97.2 F L 73 16 118/76 93 04/20/18 06:35 04/20/18 06:35 04/20/18 06:35 04/20/18 06:35 04/20/18 06:35 CONSTITUTIONAL -Vitals reviewed -The patient is well developed, well nourished, well groomed PSYCHIATRIC -Fully alert and oriented -Pleasant mood LEFT LOWER EXTREMITY Inspection shows that the skin and the soft tissue envelope are intact without deformities. No redness. Mild palpable effusion. No warmth to the knee. Minimal tenderness throughout but mostly posteriorly. Good stability to the knee. I can range the knee from 0-90 degrees without significant pain. She can grossly flex and plantar flex ankle and toes and the foot is sensate and well- perfused. Diagnostic Imaging: I did personally review and interpret x-rays of the left knee obtained yesterday which show significant tricompartmental osteoarthritis Results - Labs Result Diagrams: 04/19/18 19:06 04/19/18 17:39 Labs: Abnormal lab results MPV 9.2 fL (9.4-12.4) L 04/19/18 19:06 ESR 29 mm/hr (0-15) H 04/19/18 17:39 Carbon Dioxide 34 mEq/L (23-29) H 04/19/18 17:39 Glucose 121 mg/dL (70-105) H 04/19/18 17:39 C-Reactive Protein 51 mg/L (Less than 10) H 04/19/18 17:39 Synovial Appearance Bloody (Clear-Hazy) A 04/19/18 20:29 Synovial RBC 1.927 M/mcl (0.000-0.002) H 04/19/18 20:29 Synovial Tot Nuc Cell 5519 TNC/mcL (0-200) H 04/19/18 20:29 H & H 04/19/18 Range/Units 19:06 Hgb 13.6 (11.5-15.4) g/dL Hct 41.4 (35.3-44.9) % All other labs normal. Consult Discharge Plan - Plan Referrals: Derrick Trinidad DO [Primary Care Provider] -
[2018-04-20 10:48] LABS: Appearance,Synovial Fluid Bloody (Clear-Hazy); Color,Synovial Fluid Red (Straw)
[2018-04-20] MEDS: Budesonide/Formoterol 160/4.5 1 PUFF INH IH SCH ×2 (15:39→20:30)
[2018-04-20] MEDS: Ketorolac 15 MG/ML VIAL IVP PRN (17:33)
[2018-04-20] MEDS: traZODone 50 MG TABLET PO SCH (20:44)
[2018-04-20] MEDS: ALPRAZolam 0.5 MG TABLET PO SCH (20:45)
[2018-04-21 04:34] LABS: Basophils % 0.4 %; Eosinophils # 0.3 K/mcL (0.0-0.6); Eosinophils % 4.2 %; Hematocrit 38.7 % (35.3-44.9); Hemoglobin 12.6 g/dL (11.5-15.4); Immature Granulocytes % 0.1 % (0-4); Lymphocytes # 1.9 K/mcL (0.6-4.6); Lymphocytes % 24.8 %; Mean Corpuscular HGB Conc 32.6 g/dL (31.6-35.5); Mean Corpuscular Volume 92.1 fL (83.0-100.0); Monocytes # 0.7 K/mcL (0.0-1.3); Monocytes % 8.6 %; Neutrophils # 4.7 K/mcL (1.6-8.9); Platelet Count 249 K/mcL (140-400); Red Cell Distribution Width 12.9 % (11.5-14.5); Segmented Neutrophils % 61.9 %
[2018-04-21] MEDS ORDERED: hydrALAZINE 10 MG TABLET PO ONE (05:50)
[2018-04-21] MEDS: ALPRAZolam 0.5 MG TABLET PO SCH (06:15)
[2018-04-21] MEDS: traZODone 50 MG TABLET PO SCH (06:15)
[2018-04-21] MEDS: Budesonide/Formoterol 160/4.5 1 PUFF INH IH SCH ×2 (07:34→19:53)
[2018-04-21] MEDS ORDERED: Aminoglycoside Consult 1 EACH MC ONE (08:12)
--- NOTE | 2018-04-21 08:18 | Internal Med Progress Note ---
<Will Ratliff - Last Filed: 04/21/18 12:51> Hospitalist Progress Note - Encounter Date of Encounter: 04/21/18 Time of Encounter: 08:18 - Subjective Interval History: Dr Rose saw patient early this AM for left knee pain with aspiration yesterday. Based on aspirate and physical exam there is low suspicion for septic joint. She did have a positive blood culture yesterday, which does not correlate with her benign clinical condition, physical exam, and labs. I believe this may be an error. However due to possibility of bacteremia we have restarted Vancomycin, ordered CXR, and ordered UA until we have confirmation of negative blood culture. Patient is doing well this morning, labs and vitals without acute changes. - Exam Vitals: Temp Pulse Resp BP Pulse Ox 98.1 F 72 16 173/94 96 04/21/18 07:38 04/21/18 07:38 04/21/18 07:38 04/21/18 07:38 04/21/18 07:38 Exam: Alert and Oriented x 3 Normal affect PERRL, Mucous Membranes Moist Heart in regular rate and rhythm Lungs Clear to Auscultation Abdomen sot and non tender with normal bowel sounds present No focal deficits Motor, sensation, pulses intact in all 4 distal extremities Left knee mildly swollen, mildly tender to palpation, not warm, not red, not indurated - Assessment and Plan (1) Hemarthrosis Current Visit: Yes Status: Acute Assessment and Plan: 67-year-old female presenting with knee pain, x-ray left knee showing effusion, joint aspiration of left knee showing hemarthrosis. Dr Rose saw this AM and repeated joint aspiration Low suspicion for septic joint, discontinued antibiotics, to follow culture results and patient in clinic Exam relatively benign, not concerning for infection However patient had blood culture positive for gram positive cocci This is contradictory to her benign labs, vitals, exam This is possibly an error, however due to the risk of bacteremia we will repeat blood cultures and get UA and CXR Toradol for pain control (2) COPD (chronic obstructive pulmonary disease) Current Visit: No Status: Chronic Assessment and Plan: Continue home symbicort. (3) Fibromyalgia Current Visit: No Status: Chronic Assessment and Plan: Continue home zoloft (4) DVT prophylaxis Current Visit: No Status: Acute Assessment and Plan: Subcutaneous heparin. (5) Hypertension Current Visit: Yes Status: Acute Assessment and Plan: Patient having systolic > 180 for several days, recalcitrant to one time doses of medication She does not take home medications Started PRN hydralazine for systolic >160 will continue to monitor and notify PCP at discharge - Time Spent with Patient Total time spent is greater than 50% in coordination of care (as documented) at patient's floor/unit and/or counseling patient: Internal Medicine: Result - Labs CBC & Chem 7: 04/21/18 03:50 04/19/18 17:39 Labs: Short CBC 04/21/18 Range/Units 03:50 WBC 7.6 (4.3-11.1) K/mcL Hgb 12.6 (11.5-15.4) g/dL Hct 38.7 (35.3-44.9) % Plt Count 249 (140-400) K/mcL Neutrophils # 4.7 (1.6-8.9) K/mcL Consult Discharge Plan - Plan Referrals: Derrick Trinidad DO [Primary Care Provider] - <Kim Barnes - Last Filed: 04/21/18 13:44> Hospitalist Progress Note - Encounter Date of Encounter: 04/21/18 - Exam Vitals: Temp Pulse Resp BP Pulse Ox 98.1 F 72 16 173/94 96 04/21/18 07:38 04/21/18 07:38 04/21/18 07:38 04/21/18 07:38 04/21/18 08:00 - Assessment and Plan (1) Hemarthrosis Current Visit: Yes Status: Acute (2) DVT prophylaxis Current Visit: No Status: Acute (3) COPD (chronic obstructive pulmonary disease) Current Visit: No Status: Chronic (4) Fibromyalgia Current Visit: No Status: Chronic (5) Hypertension Current Visit: Yes Status: Acute - Time Spent with Patient Total time spent is greater than 50% in coordination of care (as documented) at patient's floor/unit and/or counseling patient: Internal Medicine: Result - Labs CBC & Chem 7: 04/21/18 03:50 04/19/18 17:39 Labs: Short CBC 04/21/18 Range/Units 03:50 WBC 7.6 (4.3-11.1) K/mcL Hgb 12.6 (11.5-15.4) g/dL Hct 38.7 (35.3-44.9) % Plt Count 249 (140-400) K/mcL Neutrophils # 4.7 (1.6-8.9) K/mcL - Attending Attestation I examined this patient and my medical decision-making was reviewed with the Resident Physician Dr Ratliff. I agree with the documented findings, dispo sition and treatment plan as described except to the extent set forth below. Ms Siegel is admitted with left knee pain and concern for joint infection. Foudn to have + bl cx awake, resting comfortably, pain tolerable and improving, rom and edema improving, no n/v/fevers/chills. aware of bl cx results, dneies cough, congestion, dysuria, urgency or frequency changes in urination, diarrhea or rash. solis with bp elevations. + elevated bps at dr offices and in hospital in past but normal bps at home. she has never required bp meds. no vision changes, chest pain or palpitations. gen- alert, awake,appears stated age eyes- pupils equal round cv- reg rate and rhythm, normal s1,s2, no murmurs appreciated lungs- ctabl, no wheezing, rhonchi or crackles msk- left knee joint edema, no increased warmth, no pain to palpation neuro- AAOx3 Left knee pain 2/ OA- concern for septic knee but initial tap fluid analysis neg for infection,ortho following rec cont nsaids for pain Hemarthrosis- hgb stable Elevated BP- pt reprts white coat htn, no home bp meds- pain control, prn hydralazine, cont to monitor, will require outpt fu 04/19 + blood cx 1/2 for gpc- cont to follow, cont vanc, repeat cxs pending, cxr and ua further diagnoses and treatments as noted by resident <Will Ratliff - Last Filed: 04/21/18 12:51> (2) COPD (chronic obstructive pulmonary disease) Qualifiers: COPD type: unspecified COPD Qualified Code(s): J44.9 - Chronic obstructive pulmonary disease, unspecified <Kim Barnes - Last Filed: 04/21/18 13:44> (3) COPD (chronic obstructive pulmonary disease) Qualifiers: COPD type: unspecified COPD Qualified Code(s): J44.9 - Chronic obstructive pulmonary disease, unspecified
[2018-04-21 08:27] LABS: Acinetobacter baumannii by PCR Not Detected (Not Detect); Candida albicans by PCR Not Detected (Not Detect); Candida glabrata by PCR Not Detected (Not Detect); Candida krusei by PCR Not Detected (Not Detect); Candida parapsilosis by PCR Not Detected (Not Detect); Candida tropicalis by PCR Not Detected (Not Detect); Enterobacter cloacae Cmplx PCR Not Detected (Not Detect); Enterobacteriaceae by PCR Not Detected (Not Detect); Enterococcus by PCR Not Detected (Not Detect); Escherichia coli by PCR Not Detected (Not Detect); Klebsiella oxytoca by PCR Not Detected (Not Detect); Klebsiella pneumoniae by PCR Not Detected (Not Detect); Proteus by PCR Not Detected (Not Detect); Pseudomonas aeruginosa by PCR Not Detected (Not Detect); Serratia marcescens by PCR Not Detected (Not Detect); Staphylococcus aureus by PCR Not Detected (Not Detect); Staphylococcus by PCR DETECTED (Not Detect); Streptococcus agalactiae(B)PCR Not Detected (Not Detect); Streptococcus by PCR Not Detected (Not Detect); Streptococcus pneumoniae PCR Not Detected (Not Detect); Streptococcus pyogenes (A) PCR Not Detected (Not Detect); mecA Methicillin-Resist Gene Not Detected (Not Detect)
[2018-04-21] MEDS ORDERED: Acetaminophen 325 MG TABLET PO PRN (09:07)
--- NOTE | 2018-04-21 09:19 | Orthopedics Progress Note ---
Date of Encounter: 04/21/18 Time of Encounter: 09:16 - Assessment and Plan (1) Left knee pain Current Visit: Yes Status: Acute Qualifiers: Chronicity: acute Qualified Code(s): M25.562 - Pain in left knee Subjective Interval history: S: Minimal pain to the left knee Biggest complaint today is headache O: Afebrile on the vital signs are stable though she does have elevated blood pressures Knee is evaluated and there is minimal effusion; no redness or warmth. She can flex and extend her knee from 0-90 degrees without significant pain No instability to the knee noted She can dorsiflex and plantarflex ankle and toes The foot is sensate and well-perfused. Blood cultures noted A: Left knee osteoarthritis P: At this point I do not have any clinical concerns for septic arthritis given the appearance of the knee and results of the previous 2 aspirates. My recommendation is observation and oral anti-inflammatories at this point for the left knee. I did discuss with Dr. Ratliff the elevated blood pressures, headaches, and single positive blood culture, which he will work up further and manage. We both agree that they are unrelated to the knee. Objective Vital signs: Vital Signs Temp Pulse Resp BP Pulse Ox 04/21/18 07:38 98.1 F 72 16 173/94 96 04/21/18 05:20 176/93 04/21/18 05:08 98.4 F 77 18 181/91 94 04/21/18 00:02 98.5 F 74 18 159/87 95 04/20/18 19:04 97.5 F L 79 18 154/81 93 04/20/18 16:22 98.4 F 77 14 165/87 97 04/20/18 14:31 98.6 F 86 16 104/75 95 04/20/18 12:19 98.4 F 82 17 122/80 96 Intake and Output 04/20/18 04/21/18 04/21/18 23:59 07:59 15:59 Intake Total 970 / 970 650 / 650 Output Total 0 / 0 0 / 0 Balance 970 / 970 650 / 650 Intake: IV Fluids 250 / 250 Vancocin 1,000 MG In 0.9 % 250 / 250 Sodium Chloride 250 ML @ 167 mls/hr IVPB Q12H [facility] Rx#: [id number] Oral 720 / 720 650 / 650 Output: Urine 0 / 0 0 / 0 Other: Meal Dinner Percent of Meal Consumed 75% # Voids 1 Weight 72.06 kg Patient Weight 04/21/18 23:59 Weight 72.06 kg - Labs CBC & BMP: 04/21/18 03:50 04/19/18 17:39 Labs: Abnormal lab results MPV 9.0 fL (9.4-12.4) L 04/21/18 03:50 ESR 29 mm/hr (0-15) H 04/19/18 17:39 Carbon Dioxide 34 mEq/L (23-29) H 04/19/18 17:39 Glucose 121 mg/dL (70-105) H 04/19/18 17:39 C-Reactive Protein 51 mg/L (Less than 10) H 04/19/18 17:39 Synovial Appearance Bloody (Clear-Hazy) A 04/20/18 07:40 Staphylococcus sp PCR DETECTED (Not Detect) A 04/19/18 17:39 Consult Discharge Plan - Plan Referrals: Derrick Trinidad DO [Primary Care Provider] -
[2018-04-21 18:22] LABS: Bilirubin,Urine Negative (Negative); Blood,Urine Negative (Negative); Clarity,Urine Clear (Clear); Color,Urine Yellow (Yellow); Glucose,Urine (UA) Normal (Normal); Ketones,Urine Negative (Negative); Leukocyte Esterase,Urine Negative (Negative); Nitrite,Urine Negative (Negative); Protein,Urine Negative (Neg-Trace); Specific Gravity,Urine < 1.005 (1.010-1.025); Urobilinogen,Urine Normal (Normal)
[2018-04-21] MEDS ORDERED: *HR* Labetalol 20 MG/4 ML SYRINGE IVP ONE (21:31)
[2018-04-21] MEDS ORDERED: *HR* Promethazine 25 MG/ML VIAL IM PRN (21:32)
[2018-04-21] MEDS ORDERED: Ketorolac 15 MG/ML VIAL IM ONE (21:33)
[2018-04-22] MEDS: ALPRAZolam 0.5 MG TABLET PO SCH ×2 (00:32→20:44)
[2018-04-22] MEDS: traZODone 50 MG TABLET PO SCH ×2 (00:32→20:56)
[2018-04-22] MEDS ORDERED: 0.9 % Sodium Chloride 1,000 ML IVC SCH (01:00)
[2018-04-22] MEDS ORDERED: 0.9 % Sodium Chloride 1,000 ML ONE (01:05)
[2018-04-22] MEDS: Ketorolac 15 MG/ML VIAL IVP PRN ×3 (01:07→22:57)
[2018-04-22] MEDS ORDERED: *HR* Labetalol 20 MG/4 ML SYRINGE IVP ONE ×2 (06:45→23:31)
[2018-04-22] MEDS ORDERED: Acetaminophen 325 MG TABLET PO PRN (07:01)
[2018-04-22] MEDS ORDERED: hydroCHLOROthiazide 25 MG TABLET PO SCH ×2 (07:13→09:00)
--- NOTE | 2018-04-22 07:30 | Orthopedics Progress Note ---
Date of Encounter: 04/22/18 Time of Encounter: 07:29 - Assessment and Plan (1) Left knee pain Current Visit: Yes Status: Acute Qualifiers: Chronicity: acute Qualified Code(s): M25.562 - Pain in left knee Subjective Interval history: S: Minimal pain to the left knee Biggest complaint today remains the headache O: Afebrile on the vital signs are stable though she does have elevated blood pressures Knee is evaluated and there is minimal effusion; no redness or warmth. She can flex and extend her knee from 0-90 degrees without significant pain No instability to the knee noted She can dorsiflex and plantarflex ankle and toes The foot is sensate and well-perfused. A: Left knee osteoarthritis P: No concern for septic arthritis of the left knee. She does have osteoarthritis. Continue to follow the cultures. Objective Vital signs: Vital Signs Temp Pulse Resp BP Pulse Ox 04/22/18 06:29 98.2 F 60 18 178/85 94 04/22/18 05:08 98.8 F 76 20 158/90 94 04/22/18 00:28 98.9 F 81 20 155/81 94 04/21/18 20:35 164/100 04/21/18 20:34 99.0 F 83 168/91 93 04/21/18 17:12 76 164/92 04/21/18 14:07 98.6 F 86 18 188/88 96 04/21/18 10:00 98.4 F 78 16 168/87 97 04/21/18 08:00 96 04/21/18 07:38 98.1 F 72 16 173/94 96 Intake and Output 04/21/18 04/21/18 04/22/18 15:59 23:59 07:59 Intake Total 800 / 800 600 / 600 500 / 500 Output Total 300 / 300 0 / 0 Balance 500 / 500 600 / 600 500 / 500 Intake: IV Fluids 250 / 250 250 / 250 Vancocin 1,000 MG In 0.9 % 250 / 250 250 / 250 Sodium Chloride 250 ML @ 167 mls/hr IVPB Q12H [facility] Rx#: [id number] Oral 550 / 550 350 / 350 500 / 500 Output: Urine 300 / 300 0 / 0 Other: Meal Lunch Percent of Meal Consumed 75% Stool Size Small Stool Consistency loose # Voids 2 1 2 # Bowel Movements 3 Weight 71.3 kg Patient Weight 12/17/18 23:59 Weight 71.3 kg - Labs CBC & BMP: 04/21/18 03:50 12 17:39 Labs: Abnormal lab results MPV 9.0 fL (9.4-12.4) L 04/21/18 03:50 ESR 29 mm/hr (0-15) H 04/19/18 17:39 Carbon Dioxide 34 mEq/L (23-29) H 04/19/18 17:39 Glucose 121 mg/dL (70-105) H 04/19/18 17:39 C-Reactive Protein 51 mg/L (Less than 10) H 04/19/18 17:39 Ur Specific Blessing < 1.005 (1.010-1.025) L 04/21/18 17:38 Synovial Appearance Bloody (Clear-Hazy) A 04/20/18 07:40 Vancomycin Trough 16 mcg/mL (5-10) H 04/21/18 17:59 Staphylococcus sp PCR DETECTED (Not Detect) A 04/19/18 17:39 Consult Discharge Plan - Plan Referrals: Derrick Trinidad DO [Primary Care Provider] -
[2018-04-22] MEDS: Budesonide/Formoterol 160/4.5 1 PUFF INH IH SCH ×2 (07:53→19:45)
--- NOTE | 2018-04-22 08:05 | Internal Med Progress Note ---
<Will Ratliff - Last Filed: 04/22/18 12:43> Hospitalist Progress Note - Encounter Date of Encounter: 04/22/18 Time of Encounter: 08:05 - Subjective Interval History: Based on aspirate and physical exam there is low suspicion for septic joint. She did have a positive blood culture, and serology positive for staph, which do es not correlate with her benign clinical condition, physical exam, and labs. This may be contaminant or error. UA and CXR negative. Repeat blood cultures pending. Patient has also been having elevated blood pressure with headache. Head CT benign. - Exam Vitals: Temp Pulse Resp BP Pulse Ox 98.2 F 60 18 178/85 94 04/22/18 06:29 04/22/18 06:29 04/22/18 06:29 04/22/18 06:29 04/22/18 06:29 Exam: Alert and Oriented x 3 Normal affect PERRL, Mucous Membranes Moist Heart in regular rate and rhythm Lungs Clear to Auscultation Abdomen soft and non tender with normal bowel sounds present No focal deficits Motor, sensation, pulses intact in all 4 distal extremities Left knee mildly swollen, mildly tender to palpation, not warm, not red, not indurated - Assessment and Plan (1) Hemarthrosis Current Visit: Yes Status: Acute Assessment and Plan: 67-year-old female presenting with knee pain, x-ray left knee showing effusion, joint aspiration of left knee showing hemarthrosis. Dr Rose saw this AM and repeated joint aspiration Low suspicion for septic joint, discontinued antibiotics, to follow culture results and patient in clinic Exam relatively benign, not concerning for infection However patient had blood culture positive for gram positive cocci with positive staph serology This is contradictory to her benign labs, vitals, exam This is possibly a contamination or error, however due to the risk of bacteremia we will repeat blood cultures UA and CXR negative, repeat blood cultures pending Toradol for pain control (2) COPD (chronic obstructive pulmonary disease) Current Visit: No Status: Chronic Assessment and Plan: Continue home symbicort. Stable (3) Fibromyalgia Current Visit: No Status: Chronic Assessment and Plan: Continue home zoloft (4) DVT prophylaxis Current Visit: No Status: Acute Assessment and Plan: Subcutaneous heparin. (5) Hypertension Current Visit: Yes Status: Acute Assessment and Plan: Patient having systolic > 180 for several days, recalcitrant to one time doses of medication She does not take home medications Started PRN hydralazine for systolic >160 Started 12.5mg daily PO Hydrochlorothiazide AM BP today 178/85, repeat after meds 143/84 will continue to monitor and formulate discharge plan, notify PCP at discharge - Time Spent with Patient Total time spent is greater than 50% in coordination of care (as documented) at patient's floor/unit and/or counseling patient: Internal Medicine: Result - Labs CBC & Chem 7: 04/21/18 03:50 04/19/18 17:39 Labs: Urine 04/21/18 Range/Units 17:38 Urine Color Yellow (Yellow) Urine Clarity Clear (Clear) Urine pH 7.0 (5.0-8.0) pH Units Ur Specific Cedar < 1.005 L (1.010-1.025) Urine Protein Negative (Neg-Trace) mg/dL Urine Glucose (UA) Normal (Normal) mg/dL - Impressions Impressions Chest X-Ray 04/21/18 08:14 IMPRESSION: No acute cardiopulmonary disease. COPD. D/ / Wilbur Simon MD / Wilbur Simon MD Interpreting Provider: Wilbur Simon MD Head CT 04/22/18 07:13 IMPRESSION: 1. No acute intracranial abnormality. 2. Minimal diffuse atrophy and minimal chronic small vessel ischemic changes. D/ / Jermaine Rose MD / Jermaine Rose MD Interpreting Provider: Jermaine Rose MD Consult Discharge Plan - Plan Referrals: Derrick Trinidad DO [Primary Care Provider] - <Kim Barnes - Last Filed: 04/22/18 13:02> Hospitalist Progress Note - Encounter Date of Encounter: 04/22/18 - Exam Vitals: Temp Pulse Resp BP Pulse Ox 98.6 F 72 18 142/83 96 04/22/18 10:31 04/22/18 10:31 04/22/18 10:31 04/22/18 10:31 04/22/18 10:31 - Assessment and Plan (1) Hemarthrosis Current Visit: Yes Status: Acute (2) DVT prophylaxis Current Visit: No Status: Acute (3) COPD (chronic obstructive pulmonary disease) Current Visit: No Status: Chronic (4) Fibromyalgia Current Visit: No Status: Chronic (5) Hypertension Current Visit: Yes Status: Acute - Time Spent with Patient Total time spent is greater than 50% in coordination of care (as documented) at patient's floor/unit and/or counseling patient: Internal Medicine: Result - Labs CBC & Chem 7: 04/21/18 03:50 04/19/18 17:39 Labs: Urine 04/21/18 Range/Units 17:38 Urine Color Yellow (Yellow) Urine Clarity Clear (Clear) Urine pH 7.0 (5.0-8.0) pH Units Ur Specific Cedar < 1.005 L (1.010-1.025) Urine Protein Negative (Neg-Trace) mg/dL Urine Glucose (UA) Normal (Normal) mg/dL - Impressions Impressions Chest X-Ray 04/21/18 08:14 IMPRESSION: No acute cardiopulmonary disease. COPD. D/ / Wilbur Simon MD / Wilbur Simon MD Interpreting Provider: Wilbur Simon MD Head CT 04/22/18 07:13 IMPRESSION: 1. No acute intracranial abnormality. 2. Minimal diffuse atrophy and minimal chronic small vessel ischemic changes. D/ / Jermaine Rose MD / Jermaine Rose MD Interpreting Provider: Jermaine Rose MD - Attending Attestation I examined this patient and my medical decision-making was reviewed with the Resident Physician Dr Ratliff. I agree with the documented findings, disposition and treatment plan as described except to the extent set forth below. Ms Siegel is admitted with left knee pain and concern for joint infection which has been ruled out.Her course was prolonged by + staph bl cx and uncon trolled htn awake, no headache currently. denies cp, pressure, sob or vision changes with bp elevation but + solis with it. no numbness in her face, speech changes or assoicated numbness/tingling extremities or weakness. She has about 2 c coffee each day and is drinking some now. She has poor appetite and hasn't been eating or drinking much at all here, encouraged increase intake gen- alert, awake,appears stated age eyes- pupils equal round, eom intact cv- reg rate and rhythm, normal s1,s2, no murmurs appreciated, no le edema lungs- ctabl, no wheezing, rhonchi or crackles, normal resp effort on ra msk- left knee joint edema, no increased warmth, no pain to palpation neuro- AAOx3, cn intact, strength 5/5 throughout, sensation to lit touch intact and equal throughout Left knee pain 2/ OA- concern for septic knee but initial tap fluid analysis neg for infection,ortho following rec cont nsaids for pain, fu outpt Hemarthrosis- hgb stable, fu ortho outpt Elevated BP- pt reprts white coat htn, no home bp meds Remains uncontrolled with prn hydralazine -add hctz, being up titrating as needed -CT head for elevation + solis and neg - pain control, prn hydralazine, cont to monitor, will require outpt fu 04/19 + blood cx 1/2 for gpc now confirmed staph hominis- contaminant, repeat cxs ngts, afebrile- stop vanc further diagnoses and treatments as noted by resident <Will Ratliff - Last Filed: 04/22/18 12:43> (2) COPD (chronic obstructive pulmonary disease) Qualifiers: COPD type: unspecified COPD Qualified Code(s): J44.9 - Chronic obstructive pulmonary disease, unspecified (5) Hypertension Qualifiers: Hypertension type: unspecified Qualified Code(s): I10 - Essential (primary) hypertension <Kim Barnes - Last Filed: 04/22/18 13:02> (3) COPD (chronic obstructive pulmonary disease) Qualifiers: COPD type: unspecified COPD Qualified Code(s): J44.9 - Chronic obstructive pulmonary disease, unspecified (5) Hypertension Qualifiers: Hypertension type: unspecified Qualified Code(s): I10 - Essential (primary) hypertension
[2018-04-22] MEDS: *HR* Promethazine 25 MG/ML VIAL IVP PRN ×2 (12:23→20:45)
[2018-04-22] MEDS ORDERED: hydroCHLOROthiazide 25 MG TABLET PO ONE (18:00)
[2018-04-23] MEDS ORDERED: Acetaminophen/Butalbital/CaffeineTABLET PO ONE
[2018-04-23] MEDS: Budesonide/Formoterol 160/4.5 1 PUFF INH IH SCH (07:58)
--- NOTE | 2018-04-23 08:04 | Discharge Summary ---
<Will Ratliff Evangelina - Last Filed: 04/23/18 11:50> - NOTES TO OUTPATIENT PROVIDER Notes to Outpatient Provider: Ms. Siegel was admitted for suspected left septic knee. After orthopedic consult and two aspirations it was determined not to be septic and ortho would follow outpatient. She also had a positive blood culture which was determined to be contaminant. During her hospital stay she had symptomatic hypertension in the 180s systolic with headaches, which we managed with PO HCTZ and PRN IV Hydralazine. CT Head screened which was negative. We will discharge on 25mg PO HCTZ daily with PCP follow up to reassess. Orders not resulted at time of discharge: Pending orders 04/19/18 17:39 Culture,Blood [BC] Stat 04/21/18 11:17 Culture,Blood [BC] Routine Date of Encounter: 04/23/18 Time of Encounter: 08:04 - Discharge Diagnosis (1) Hemarthrosis Priority: Primary Status: Acute Assessment and Plan: 67-year-old female presenting with knee pain, x-ray left knee showing effusion, joint aspiration of left knee showing hemarthrosis. Dr Rose consulted and performed joint aspiration Low suspicion for septic joint, discontinued antibiotics, to follow culture results and patient in clinic Exam relatively benign, not concerning for infection However patient had blood culture positive for gram positive cocci with positive staph serology This was contradictory to her benign labs, vitals, exam This was possibly a contamination or error, however due to the risk of bacteremia we repeated repeat blood cultures UA and CXR negative, repeat blood cultures negative, original culture determined to be contaminant Toradol for pain control, follow up outpatient with Orthopedics (2) COPD (chronic obstructive pulmonary disease) Priority: Secondary Status: Chronic Assessment and Plan: No symptoms of exacerbation during hospital course Continue home symbicort. Stable Qualifiers: COPD type: unspecified COPD Qualified Code(s): J44.9 - Chronic obstructive pulmonary disease, unspecified (3) Fibromyalgia Priority: Secondary Status: Chronic Assessment and Plan: Continue home zoloft (4) DVT prophylaxis Priority: Secondary Status: Acute Assessment and Plan: Subcutaneous heparin during hospitalization (5) Hypertension Priority: Secondary Status: Acute Assessment and Plan: Patient having systolic > 180 for several days, recalcitrant to one time doses of medication Patient also had associated headaches, CT head benign She does not take home medications Started PRN hydralazine for systolic >160 Started 12.5mg daily PO Hydrochlorothiazide, transitioned to 25mg daily AM BP today 150/90, stable for discharge on 25mg PO Hydrochlorothiazide daily and PCP follow up Qualifiers: Hypertension type: unspecified Qualified Code(s): I10 - Essential (primary) hypertension Hospital course: Ms. Siegel is a 67 year old female With a past medical history of COPD and fibromyalgia who presented with left knee pain. Differential included septic joint ad trauma. Joint aspiration and knee XR were benign. Orthopedics was consulted and knee was re-aspirated in AM. Orthopedics did not suspect septic joint based on aspirate and exam. Patient was medically stable for discharge however previous blood culture grew staph with positive serology. Contaminant was suspected but patient was started on Vacnomycin until negative blood culture could be confirmed. During continued stay patient had episodes of symptomatic hypertension with headache. CT head benign. Patient was started on PRN IV Hydralazine, 12.5mg PO HCTZ daily was added, then escalated to 25mg PO HCTZ daily. Blood culture growth was confirmed to be contaminant and patients blood pressure was stabilized. She was medically stable for discharge with home meds, daily HCTZ, and PCP follow up. Discharge discussed with: patient, family - Time Spent with Patient Total time spent providing and/or coordinating discharge services: - Discharge Medications Prescriptions: hydroCHLOROthiazide [Hydrochlorothiazide] 25 mg PO DAILY 30 Days #30 tablet Home Medications: ALPRAZolam [Xanax 0.5 MG Tablet] 0.5 mg PO HS 04/19/18 [History] Budesonide/Formoterol 160/4.5 [Symbicort 160/4.5] 2 puff IH BIDR 04/19/18 [History] Meloxicam 15 mg PO DAILY 04/19/18 [History] Sertraline [Zoloft] 150 mg PO DAILY 04/19/18 [History] Simvastatin [Zocor] 40 mg PO QPM 04/19/18 [History] Trazodone HCl 150 mg PO HS 04/19/18 [History] hydroCHLOROthiazide [Hydrochlorothiazide] 25 mg PO DAILY 30 Days #30 tablet 04/23/18 [Rx] Allergies/Adverse Reactions: Allergy/AdvReac Type Severity Reaction Status Date / Time No Known Allergies Allergy Verified 04/17/18 17:07 Date of admission: 04/21/18 14:52 Primary care physician: Derrick Trinidad DO Consults: 04/19/18 22:28 Consult to Orthopedic Surgery [CONS] Stat Consulting Provider: [facility] Reason for Consult: rule out septic joint Time Notified: 21:30 Call Completed: Yes Discharging clinician: Will Ratliff Anticipated date of discharge: 04/23/18 - Constitutional Vitals: Temp Pulse Resp BP Pulse Ox 98.3 F 82 16 150/90 94 04/23/18 06:53 04/23/18 06:53 04/23/18 06:53 04/23/18 06:53 04/23/18 06:53 General appearance: Present: cooperative, A&O X 3, pleasant, no acute distress, answers questions appropriately Exam: Alert and Oriented x 3 Normal affect PERRL, Mucous Membranes Moist Heart in regular rate and rhythm Lungs Clear to Auscultation Abdomen soft and non tender with normal bowel sounds present No focal deficits Motor, sensation, pulses intact in all 4 distal extremities Left knee not swollen or tender to palpation, not warm, not red, not indurated - Patient Status Disposition: Home, Self-Care Condition: Good Functional capacity at discharge: independent ambulation Overall status at discharge: patient is progressing back to baseline - Discharge Instructions Follow Up With: Derrick Trinidad DO [Primary Care Provider] - - Diet and Activity Activity: resume usual activities as tolerated Diet: advance to your usual diet <David Zaidi - Last Filed: 04/23/18 14:18> Orders not resulted at time of discharge: Pending orders 04/19/18 17:39 Culture,Blood [BC] Stat 04/21/18 11:17 Culture,Blood [BC] Routine Date of Encounter: 04/23/18 - Discharge Diagnosis (1) Hemarthrosis, left knee Priority: Primary Status: Acute (2) Hemarthrosis Status: Acute (3) DVT prophylaxis Status: Acute (4) COPD (chronic obstructive pulmonary disease) Status: Chronic Qualifiers: COPD type: unspecified COPD Qualified Code(s): J44.9 - Chronic obstructive pulmonary disease, unspecified (5) Fibromyalgia Status: Chronic (6) Hypertension Status: Acute Qualifiers: Hypertension type: essential hypertension Qualified Code(s): I10 - Essential (primary) hypertension Hospital course: Ms. Robbin is a 67 year old female - Time Spent with Patient Total time spent providing and/or coordinating discharge services: 37min Date of admission: 04/21/18 14:52 Primary care physician: Derrick Trinidad DO Consults: 04/19/18 22:28 Consult to Orthopedic Surgery [CONS] Stat Consulting Provider: [facility] Reason for Consult: rule out septic joint Time Notified: 21:30 Call Completed: Yes - Constitutional Vitals: Temp Pulse Resp BP Pulse Ox 98.7 F 83 15 136/91 96 04/23/18 11:54 04/23/18 11:54 04/23/18 11:54 04/23/18 11:54 04/23/18 11:54 - Attending Attestation I examined this patient and my medical decision-making was reviewed with the Resident Physician on 04/23/18. I agree with the documented findings, disposition and treatment plan as described except to the extent set forth below. Ms Siegel has been hospitalized for swelling of L knee and concern for septic arthritis. She had arthrocentesis and no infection found. She developed issues with her blood pressure and was started on HCTZ with improvement. Today her BP is 136/91 and she is afebrile. She is ready for discharge home. Exam alert Comfortable Mucus membranes dry Heart reg and not tachy No wheeze Abd soft OA present Plan D/C home today Follow up with PCP for BP
[2018-04-23] MEDS ORDERED: hydroCHLOROthiazide 25 MG TABLET PO SCH (09:00)
[2018-04-23 11:56] VITALS: BP 136/91
== END 2018-04-23 14:35 | disposition home or self-care (01) | DRG 554 ==
LOC: EMEROOARM 16:41 → 3NENU 16:41 → SUATTDRO 23:44 → 3NENU 23:49 → SUATTDRO 04-21 14:52
PROVIDERS: ADMIT Family Medicine; ATTEND Internal Medicine

== ENCOUNTER 2018-08-21 09:01 | Inpatient (IN) ==
--- NOTE | 2018-08-21 08:49 | Anesthesia Evaluation PreOp ---
Date of Encounter: 08/21/18 Time of Encounter: 09:40 - Past History Planned Operation: Right Total Shoulder Cardiac History: HTN, Hyperlipidemia Pulmonary History: Former smoker (15 years), COPD, Snore PAPER [employer]OX [employer]ER History: Denies Any Significant HX Other Medical History: Other (depression) Anesthesia History: No Prior Anesthetic Complications, Past Anesthesia Alcohol Use: none Drug use: none Medications and Allergies ALPRAZolam [Xanax 0.5 MG Tablet] 0.5 mg PO HS 04/19/18 [History] Meloxicam 15 mg PO DAILY 04/19/18 [History] Sertraline [Zoloft] 150 mg PO HS 04/19/18 [History] Simvastatin [Zocor] 40 mg PO HS 04/19/18 [History] Trazodone HCl 150 mg PO HS 04/19/18 [History] hydroCHLOROthiazide [Hydrochlorothiazide] 25 mg PO DAILY 08/21/18 [History] Allergy/AdvReac Type Severity Reaction Status Date / Time acetaminophen [From Vicodin] Allergy Gastrointestinal Verified 08/21/18 09:23 Upset hydrocodone [From Vicodin] Allergy Gastrointestinal Verified 08/21/18 09:23 Upset meloxicam [From Mobic] Allergy Gastrointestinal Verified 08/21/18 09:23 Upset morphine Allergy Rash Verified 08/21/18 09:23 - Meds/Allergy Pre-op Review Medications Reviewed: Yes Allergies Reviewed: Yes Beta Blockers on Current Med List: No Anesthesia Results - Labs Laboratory Tests 08/09/18 08/09/18 08/09/18 14:00 14:00 14:00 WBC 6.0 Hgb 13.6 Hct 41.0 Plt Count 253 PT 10.5 INR 0.9 APTT 35.6 Sodium 138 Potassium 3.8 BUN 14 Creatinine 0.78 - Imaging EKG: report reviewed (08/09/2018 SINUS RHYTHM WITH SHORT AR INTERVAL LOW QRS VOLTAGE IN PRECORDIAL LEADS) Anesthesia Exam O2 Sat Height 1.6 m Height 1.6 m Height 1.62 m Weight 72.121 kg Weight 72.121 kg Weight 71.668 kg O2 Sat by Pulse Oximetry 93 Vital Signs Temp Pulse Resp BP Pulse Ox 98.6 F 86 18 144/89 93 08/21/18 09:15 08/21/18 09:15 08/21/18 09:15 08/21/18 09:15 08/21/18 09:15 Height: 5'3'' Weight: 159 lbs NPO (# of Hours): 8 Pain Scale: 0 Pain Scale Used: Numeric (1 - 10) - HEENT Pupil (Motor): EOMI Mallampati: II Teeth: Edentulous Denture Type: Upper: Complete, Lower: Complete Oral Opening: Greater than 3 - PAPER [employer]OX [employer]KER LOC: Oriented PAPER [employer]OX [employer]KER Motor: Normal RUE, Normal LUE, Normal RLE, Normal LLE, Normal Face P[employer]OX [employer]ER Sensory: Normal: RUE, LUE, RLE, LLE, Face - Cardiac Rhythm: Regular Murmur: None - Pulmonary Breath Sounds: bilateral Clear Respiratory Effort: Symmetrical Anesthesia Assess/Plan ASA Score: 2 Level of consciousness: Cooperative, Oriented, Tranquil Anesthetic Plan: General, Regional Nerve Block Regional Nerve Block Plan: Supraclavicular Monitoring Plan: Standard Monitors Recovery Plan: PACU
[2018-08-21] MEDS ORDERED: CeFAZolin Syr 2,000MG/20 ML 2,000 MG/20 ML SYRINGE IVPB ONE (09:12)
[2018-08-21] MEDS ORDERED: Ringers Solution, Lactated 1,000 ML IVC SCH ×2 (09:15→14:54)
[2018-08-21] MEDS ORDERED: Ondansetron 4 MG/2 ML VIAL IVP ONE (09:58)
[2018-08-21] MEDS ORDERED: *HR* HYDROmorphone (PF) 1 MG/ML SYRINGE IVP PRN (09:58)
[2018-08-21] MEDS ORDERED: *HR* OxyCODONE Immed Rel 5 MG TABLET PO PRN ×2 (09:58→14:54)
[2018-08-21] MEDS ORDERED: *HR* Propofol 200 MG/20 ML VIAL IVP ONE (11:03)
[2018-08-21] MEDS ORDERED: *HR* FentaNYL (PF) 100 MCG/2 ML VIAL ONE (11:03)
[2018-08-21] MEDS ORDERED: *HR* Midazolam HCl 2 MG/2 ML VIAL ONE (11:03)
--- NOTE | 2018-08-21 11:17 | History & Physical Report ---
Date of Encounter: 08/21/18 Time of Encounter: 11:17 24 Hour HP Update - Instructions Instructions: If the History and Physical is less than 30 days old and was completed prior to A.M. admission and or procedure and has NOT been updated on calendar day of procedure please complete this update prior to performing procedure. - Update Patient reports changes in Medical Condition: No Changes in examination, assessment, or condition: No Changes in Medication: No Preop tests/diagnostics Reviewed: Yes Surgery Remains Indicated: Yes Consent for Planned Operative Procedure(s) Verified: Yes
[2018-08-21] MEDS ORDERED: ROPIVACAINE/PF/NS SYRINGE INTRAART ONE (11:37)
[2018-08-21] MEDS ORDERED: ROPIVACAINE HCL/PF 0.5% 30 ML VIAL ONE (11:37)
[2018-08-21] MEDS ORDERED: Ethanol\\Acetic Acid\\Na Ace\\Ben 1,000 ML IRRIG.SOLN IR ONE (11:49)
[2018-08-21] MEDS ORDERED: EPHEDrine 50 MG/ML VIAL ONE (12:25)
[2018-08-21] MEDS ORDERED: Tranexamic Acid 1,000 MG/10 ML VIAL ONE (12:27)
[2018-08-21] MEDS ORDERED: Lidocaine -MPF 2% 2 ML VIAL ONE (12:34)
[2018-08-21] MEDS ORDERED: Lidocaine -MPF 4% 5 ML AMPUL ONE (12:34)
[2018-08-21] MEDS ORDERED: Ondansetron 4 MG/2 ML VIAL ONE ×2 (12:34→13:37)
[2018-08-21] MEDS ORDERED: *HR* Rocuronium Bromide 50 MG/5 ML VIAL ONE ×2 (12:34→13:50)
--- NOTE | 2018-08-21 13:03 | Anesthesia Procedures ---
Date of Encounter: 08/21/18 Time of Encounter: 11:40 Procedures: Anesthesia - Nerve Block Procedure Date: 08/21/18 Time: 11:40 Allergies/Adv Reactions: Allergies Allergy/AdvReac Type Severity Reaction Status Date / Time acetaminophen [From Vicodin] Allergy Gastrointestinal Verified 08/21/18 09:23 Upset hydrocodone [From Vicodin] Allergy Gastrointestinal Verified 08/21/18 09:23 Upset meloxicam [From Mobic] Allergy Gastrointestinal Verified 08/21/18 09:23 Upset morphine Allergy Rash Verified 08/21/18 09:23 Pre-op Diagnosis: Right Cuff Tear Arthroplasty Surgical Procedure: Right Reverse Total Shoulder Arthroplasty Checklist: Correct Patient Identifier, Correct procedure, History checked Correct side: Right Blood Thinner: No Monitor Applied: EKG, BP, Pulse Oximetry Supplemental Oxygen via Nasal Cannula (L/min): 2 Sedation: Versed (mg): 1 Sedation: Fentanyl (mcg): 100 Indication: Post Op Analgesia Pre-op Neuro Deficits: No Block Type: Supraclavicular, Other (ICB block) Catheter placed: No Sterile Technique: Yes Ultrasound used: Yes Anatomy identified: Yes Visual spread of Local: Yes Neuro Stimulation: No Blood on Needle Aspiration: No Smooth Injection of Local: Yes Pain with Injection of Local: No Prep: Chlorhexadine Needle: 22 x 50 mm Stimuplex Local: Ropivacaine (30ml Ropivacaine 0.5% with 8mg Decadron (Supraclavicular); 12ml Ropivacaine 0.25% used for ICB) Volume (cc): 42ml (both blocks) Number of Attempts: 1 Complications: None/effective block Vitals: Vital Signs/O2 Sat/Glucose, Most Current Temp Pulse Resp BP Pulse Ox 08/21/18 11:55 72 15 111/62 96 08/21/18 11:40 79 17 144/91 98 08/21/18 11:25 79 16 137/95 98 08/21/18 09:15 98.6 F 86 18 144/89 93 Vital Signs/O2 Sat/Glucose, Most Recent Temp Pulse Resp BP Pulse Ox 98.6 F 72 15 111/62 96 08/21/18 09:15 08/21/18 11:55 08/21/18 11:55 08/21/18 11:55 08/21/18 11:55 Vital Signs/O2 Sat/Glucose, Most Recent Temp Pulse Resp BP Pulse Ox 98.6 F 72 15 111/62 96 08/21/18 09:15 08/21/18 11:55 08/21/18 11:55 08/21/18 11:55 08/21/18 11:55
[2018-08-21] MEDS ORDERED: *HR* PHENYLEPHRINE 1,000 MCG/10 ML SYRINGE IVP ONE ×2 (13:09→13:10)
[2018-08-21] MEDS ORDERED: SUGAMMADEX SODIUM 500 MG/5 ML VIAL IV ONE (13:33)
[2018-08-21] MEDS ORDERED: Neostigmine Methylsulfate 3 MG/3 ML SYRINGE ONE (13:36)
--- NOTE | 2018-08-21 14:06 | Orthopedic Operative Note ---
Date of procedure: 08/21/18 Procedure: Procedure: Right reverse total shoulder arthroplasty with open biceps tenodesis Preoperative diagnosis: Right shoulder cuff tear arthropathy Postoperative diagnosis: Same Surgeon: Jean Paul Campbell MD Charge Weigher: None Anesthesia: General with regional block EBL: 100 cc Components used: Tornier perform reversed 25 +3 mm standard baseplate, 35x6.5mm center screw. 33+3 lateralizd glenosphere, Aequalis ascend flex 2bPTC stem, High offset +0 thick tray, Flex 33+6mm poly Complications: none Indications: This is a 68-year-old female with a long history of right shoulder pain and limited motion. Imaging studies showed a large retracted rotator cuff tear with degenerative chondral changes of the glenohumeral joint. 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 The patient has failed conservative treatment and has elected for a right reverse shoulder replacement after failure of nonoperative treatment. The risks and benefits of the procedure were fully explained to the patient. These risks include, but are not limited to, the risk of infection, neurovascular injury, continued pain and stiffness of the shoulder, need for further surgery, DVT, PE, loss of limb and loss of life. The patient did understand all of these risks and wishes to proceed. Informed consent was then obtained. Operative procedure: The patient was brought back to the OR suite by the anesthesia staff. The patient was then placed supine on the operating table and all bony prominences were padded. The anesthesiologist then performed successful general anesthetic for the remainder of the case. The head, neck and airway were secured and protected by anesthesia. The bed was elevated about 30 degrees. The right upper extremity was then prepped and draped in the normal sterile orthopedic fashion and placed in the [employer] arm calderon. Preoperative antibiotics were then given prior to incision. A timeout was performed confirming the correct patient, site and side, procedure to be performed and any allergies. All were in agreement and we did proceed. A standard deltopectoral approach was performed. We dissected down through the skin coagulating any bleeders were encountered. The cephalic vein was then identified and taken laterally with the deltoid. Adhesions were cleared from underneath the deltoid and a brown retractor was placed. The interval between the deltoid and pectoralis was then developed and kolbel retractor was placed. A Darrach retractor was then placed under the acromion. The biceps tendon was exposed and identified, and then released proximally. Soft tissue tenodesis of the remaining biceps was then performed. The lateral border of the conjoined tendon was then identified. Subscapularis upper border was torn and retracted medially. The capsule was then released from the anterior aspect of the humerus around inferiorly to the back of the humerus. The humerus was subluxed anteriorly. The supraspinatus was completely torn from its insertion. Significant cartilage loss was present on the humeral head. Osteophytes were present and removed removed. A humeral osteotomy was then performed, and the humerus was sounded and broached to the appropriate size. Attention was then turned to the glenoid. The humerus was subluxed posteriorly and retractors were placed on the anterior and posterior aspects of the glenoid. There was a superior wear pattern of the glenoid with significant cartilage loss. A 360 degree release of the subscapularis was performed, and the axillary nerve was palpated and protected throughout the case. Labral debridement was then performed. A central guide pin was placed in the appropriate position on the glenoid. Central drill hole was drilled and the glenoid was then reamed in accordance with the [employer] perform reverse shoulder system. The glenoid baseplate was screwed in place and 4 peripheral drill holes were drilled and filled with the appropriate length screws. The final glenosphere was then impacted and the glenoid sphere screw was tightened in place. Attention was turned back to the humerus. The humerus was subluxed back anteriorly and a trial humeral stem, tray and poly trials were placed. Trial humeral reverse trays and poly were then placed sequentially until the most appropriate size was identified. The trial size +6 mm poly was tested and had excellent range of motion, and stability was verified. The final component was assembled on the back table and then inserted, and the shoulder was reduced. Again the shoulder was taken through range of motion and there was excellent range of motion and stability. The deltopectoral interval was tagged with 2-0 surgilon, and the incision was closed with 2-0 stratafix deep and a running 3-0 stratafix subcuticular. Sterile dressing was placed, the arm was placed in a sling and the patient was taken to the PACU in stable condition. There were no complications during the case. Post op plan: The patient will go into the reverse shoulder protocol. Was there an medical assistant internal medicine present: No Estimated blood loss (cc): 100
--- NOTE | 2018-08-21 14:16 | Anesthesia Evaluation Post Op ---
Date of Encounter: 08/21/18 Time of Encounter: 14:15 - Vital Signs Vital Signs: Vital Signs/O2 Sat/Glucose, Most Recent Temp Pulse Resp BP Pulse Ox 98.4 F 81 18 153/84 94 08/21/18 13:56 08/21/18 14:06 08/21/18 14:06 08/21/18 14:06 08/21/18 14:06 - Lungs Lungs: Clear Ascult./Percussion - Airway Airway: Non-obstructed - Cardiovascular Regular Rate, Baseline Rhythm - Mental Status Mental Status: Alert & Oriented, Answers Appropriately - Pain Pain Scale: 0 Pain Scale used: Numeric (1 - 10) - Nausea Vomiting Nausea Vomiting: Not Present - Hydration Hydration: Tolerates oral liquids Notes: 08/21/18 14:15 naac - Discharge PostOp Status: Transfer Patient to floor
[2018-08-21] MEDS ORDERED: *HR* OxyCODONE/APAP 5/325 TABLET PO PRN (14:54)
[2018-08-21] MEDS ORDERED: Temazepam 15 MG CAPSULE PO PRN (14:54)
[2018-08-21] MEDS ORDERED: Ondansetron 4 MG/2 ML VIAL IVP PRN (14:54)
[2018-08-21] MEDS ORDERED: Sennosides 8.6 MG TABLET PO PRN (14:54)
[2018-08-21] MEDS ORDERED: MOM Conc 10 ML UD.LIQ PO PRN (14:54)
[2018-08-21] MEDS: *HR* Enoxaparin 30 MG/0.3 ML SYRINGE SQ SCH (18:47)
[2018-08-21] MEDS ORDERED: traZODone 50 MG TABLET PO SCH (21:00)
[2018-08-21] MEDS ORDERED: ALPRAZolam 0.5 MG TABLET PO SCH (21:00)
[2018-08-21] MEDS: traMADol 50 MG TABLET PO PRN (22:37)
[2018-08-22 02:57] LABS: Hematocrit 36.9 % (35.3-44.9); Hemoglobin 11.8 g/dL (11.5-15.4)
[2018-08-22 03:17] LABS: BUN/Creatinine Ratio 16 (6-26); Blood Urea Nitrogen 11 mg/dL (8-23); Calcium 8.7 mg/dL (8.6-10.3); Carbon Dioxide 28 mEq/L (23-29); Chloride 103 mEq/L (98-107); Glucose 160 mg/dL (70-105); Osmolality,Calculated 291 (280-300); Potassium 4.1 mEq/L (3.5-5.1); Sodium 139 mEq/L (136-145); eGFR For Non-African Americans > 60 (> 60)
[2018-08-22] MEDS: *HR* Enoxaparin 30 MG/0.3 ML SYRINGE SQ SCH (05:31)
[2018-08-22 07:45] VITALS: BP 120/82
[2018-08-22] MEDS ORDERED: hydroCHLOROthiazide 25 MG TABLET PO SCH (09:00)
[2018-08-22] MEDS: traMADol 50 MG TABLET PO PRN (12:52)
[2018-08-22] MEDS ORDERED: *HR* Enoxaparin 30 MG/0.3 ML SYRINGE SQ SCH (13:58)
== END 2018-08-22 13:00 | disposition home or self-care (01) | DRG 483 ==
LOC: SAMDAY 09:01 → 3NENU 14:32
PROVIDERS: ADMIT Orthopaedic Surgery Sports Medicine; ATTEND Orthopaedic Surgery Sports Medicine